=== PATIENT | female | born 1955 | race Caucasian/White ===

== ENCOUNTER 2022-12-10 11:41 | Observation (INO) | payer MEDICARE, OTHER ==
[2022-12-10 12:41] LABS: Hematocrit 43.4 % (35-47); Hemoglobin 14.5 g/dL (12.0-16.0); Mean Cell Volume 82.8 fL (78-100); Mean Corpuscular Hemoglobin 27.7 pg (26-32); Mean Corpuscular Hgb Concent. 33.4 g/dL (32-36); Mean Platelet Volume 10.3 fL (7.5-11.0); Platelet Count 202 x10^3/uL (150-450); Red Blood Count 5.24 x10^6/uL (4.1-5.4); White Blood Count 12.2 x10^3/uL (4.0-10.5)
[2022-12-10 13:00] LABS: ALBUMIN 4.3 g/dL (3.5-5.0); ALKALINE PHOSPHATASE 92 U/L (38-126); AMYLASE 56 U/L (30-110); BLOOD UREA NITROGEN 13 mg/dL (7-17); CHLORIDE 106 mmol/L (98-107); Calcium 8.9 mg/dL (8.4-10.2); Carbon Dioxide 23 mmol/L (22-30); Creatinine 1 0.75 mg/dL (0.52-1.04); EST GLOMERULAR FILTRATION RATE > 60.0 ML/MIN; Glucose 151 mg/dL (74-106); LIPASE 73 U/L (23-300); Potassium 3.2 mmol/L (3.5-5.1); SGOT/AST 19 U/L (14-36); SGPT/ALT 14 U/L (0-35); SODIUM 139 mmol/L (137-145); Total Protein 7.9 g/dL (6.3-8.2)
[2022-12-10] MEDS: Sodium Chloride 0.9% 1000 ML 1,000 ML IV SCH ×2 (13:04→22:21)
[2022-12-10 13:31] LABS: INFLUENZA A NEGATIVE (NEGATIVE); INFLUENZA B NEGATIVE (NEGATIVE); RESPIRATORY SYNCTIAL VIRUS NEGATIVE (Negative); SARS-CoV-2 Xpert Express NEGATIVE (NEGATIVE)
[2022-12-10] MEDS: Hydromorphone 1 mg/ml Injection IV PRN (14:41)
[2022-12-10] MEDS: FLAGYL 500 MG IVPB 500 MG/100 ML BAG IV SCH ×2 (15:49→22:18)
[2022-12-10] MEDS ORDERED: MEDICATION INTERVENTION MC SCH (16:00)
--- NOTE | 2022-12-10 17:18 | XRAY ---
Indication: Abdominal pain, vomiting, diarrhea. Diverticulitis. Multiple contiguous axial images obtained through the abdomen and pelvis prior to and following 80 cc Isovue 370 contrast. Comparison: August 16, 2012 Lung bases demonstrates new minimal bibasilar subsegmental atelectasis/scarring. Stable 3 mm right middle lobe noncalcified nodule favored to be benign given stability over the years. Heart not enlarged. Again moderate sized hiatal hernia with partial intrathoracic stomach. Noncontrasted images demonstrates 3 new tiny left renal indeterminant cortical calcifications. Again incidental tiny splenic calcified granulomas. Noncontrasted stomach and bowel loops nonobstructed. Appendix not visualized. Descending colon demonstrates new moderate circumferential wall thickening with mild pericolonic stranding favoring colitis. Lesser degree colitis seen of the proximal sigmoid colon. No free fluid/air. Interval cholecystectomy. Postcontrast images demonstrate normal visceral and renal enhancement/excretion. Again incidental left renal parapelvic cysts with new right renal parapelvic cysts. Urinary bladder demonstrates new intraluminal air bubble either iatrogenic from recent catheterization versus gas-forming bacterial infection. Remaining liver, pancreas, spleen, adrenal glands, kidneys, ureters, and bladder are unremarkable. New minimal aortoiliac calcifications. No AAA or pathologic retroperitoneal lymphadenopathy. Osseous structures intact again with L5-S1 posterior fusion, mild multilevel degenerative spondylosis, and minimal grade 1 L5 anterolisthesis. Impression: 1. New CT findings favoring descending/sigmoid colitis. No complications. 2. New indeterminate left renal cortical calcifications. Incidental bilateral renal parapelvic cysts. 3. New urinary bladder intraluminal air bubble either iatrogenic versus gas-forming bacterial infection. 4. Again chronic findings including benign right middle lobe noncalcified micronodule, hiatal hernia with partial intrathoracic stomach, and chronic bony findings.
[2022-12-10] MEDS: Klor Con PO SCH ×4 (18:11→23:46)
[2022-12-10] MEDS ORDERED: LIPITOR 40MG PO SCH (22:00)
[2022-12-10] MEDS: Toprol Xl 50 MG PO SCH (22:00)
[2022-12-10] MEDS: ZOCOR 20MG PO SCH (22:01)
[2022-12-11] MEDS: Hydromorphone 1 mg/ml Injection IV PRN ×2 (01:47→08:07)
[2022-12-11] MEDS: FLAGYL 500 MG IVPB 500 MG/100 ML BAG IV SCH ×3 (05:12→23:25)
[2022-12-11 06:16] LABS: ANION GAP 10.1 MEQ/L (5-15); BLOOD UREA NITROGEN 11 mg/dL (7-17); CHLORIDE 112 mmol/L (98-107); Calcium 8.2 mg/dL (8.4-10.2); Carbon Dioxide 20 mmol/L (22-30); Creatinine 1 0.64 mg/dL (0.52-1.04); EST GLOMERULAR FILTRATION RATE > 60.0 ML/MIN; Glucose 86 mg/dL (74-106); Potassium 3.8 mmol/L (3.5-5.1); SODIUM 139 mmol/L (137-145)
[2022-12-11] MEDS ORDERED: Zofran 4 MG/2 ML VIAL IV PRN (09:16)
[2022-12-11 09:25] LABS: Absolute Neutrophil Ct (ANC) 6.88 x10^3/uL (1.4-6.9); BASOPHIL % 0.4 % (0.0-0.4); Basophil (Absolute #) 0.04 x10^3/uL (0-0.4); Eosinophil % 0.6 % (0.00-5.0); Eosinophil (Absolute #) 0.06 x10^3/uL (0-0.5); Hematocrit 39.3 % (35-47); Hemoglobin 12.6 g/dL (12.0-16.0); IMMATURE GRAN # 0.03 x10^3u/L (0.00-0.03); IMMATURE GRAN % 0.3 % (0.00-0.4); Lymphocyte (Absolute #) 1.64 x10^3/uL (1.0-4.6); Lymphocytes % 17.7 % (24.0-44.0); Mean Cell Volume 86.2 fL (78-100); Mean Corpuscular Hemoglobin 27.6 pg (26-32); Mean Corpuscular Hgb Concent. 32.1 g/dL (32-36); Mean Platelet Volume 10.8 fL (7.5-11.0); Monocyte (Absolute #) 0.59 x10^3/uL (0.0-1.3); Monocytes % 6.4 % (0.0-12.0); Neutrophil % 74.6 % (36.0-66.0); Platelet Count 170 x10^3/uL (150-450); Red Blood Count 4.56 x10^6/uL (4.1-5.4); White Blood Count 9.2 x10^3/uL (4.0-10.5)
[2022-12-11] MEDS: Sodium Chloride 0.9% 1000 ML 1,000 ML IV SCH ×2 (09:40→19:52)
[2022-12-11] MEDS ORDERED: NON-FORMULARY ITEM (Dapagliflozin Propanediol [Farxiga] 10 MG Tablet) PO SCH (10:00)
[2022-12-11] MEDS: NEURONTIN PO SCH (10:28)
[2022-12-11] MEDS: CLARITIN 10 MG PO SCH (10:28)
[2022-12-11] MEDS: Protonix 20MG Tablet PO SCH (10:28)
[2022-12-11] MEDS: Zestril 20 MG PO SCH (10:28)
[2022-12-11] MEDS: PLAVIX Tablet PO SCH (10:31)
--- NOTE | 2022-12-11 14:27 | PCM.HP.ADD ---
Addendum to History & Physical - History & Physical Addendum Addendum to History & Physical: This certifies that the History & Physical in the electronic chart reflects the current health status of the patient. If there are changes in the H&P these changes/exceptions are listed as follows.
--- NOTE | 2022-12-11 14:32 | PCM.NOTE ---
Date and Time: 12/11/221426 Subjective Assessment: c/o left lower abdominal pain, nausea - Review of Systems Constitutional: No Fever, No Chills Eyes: No Symptoms Ears, Nose, & Throat: No Symptoms Respiratory: No Cough, No Short Of Breath Cardiac: No Chest Pain, No Edema, No Syncope Abdominal/Gastrointestinal: Abdominal Pain, Nausea, No Vomiting, No Diarrhea Genitourinary Symptoms: No Dysuria Musculoskeletal: No Back Pain, No Neck Pain Skin: No Rash Neurological: No Dizziness, No Focal Weakness, No Sensory Changes Psychological: No Symptoms Endocrine: No Symptoms Hematologic/Lymphatic: No Symptoms Immunological/Allergic: No Symptoms Objective Exam General Appearance: no apparent distress, alert Neurologic Exam: alert, oriented x 3, cooperative, normal mood/affect, nml cerebellar function, sensation nml, No motor deficits Skin Exam: normal color, warm, dry Eye Exam: PERRL, EOMI, eyes nml inspection Ears, Nose, Throat Exam: normal ENT inspection, pharynx normal, moist mucous membranes Neck Exam: normal inspection, non-tender, supple, full range of motion Respiratory Exam: normal breath sounds, lungs clear, No respiratory distress Cardiovascular Exam: regular rate/rhythm, normal heart sounds Gastrointestinal/Abdomen Exam: soft, tenderness (LLQ), No mass Extremity Exam: normal inspection, normal range of motion Back Exam: normal inspection, normal range of motion, No CVA tenderness, No vertebral tenderness Pelvic Exam: deferred Rectal Exam: deferred OBJECTIVE DATA Vital Signs: Vital Signs - 24 hr Temp Pulse Resp BP Pulse Ox 12/11/22 12:00 18 12/11/22 11:37 97.8 F 67 18 174/65 96 12/11/22 08:00 97.7 F 71 18 174/77 95 12/11/22 04:00 97.7 F 67 16 156/74 97 12/11/22 00:00 98.9 F 70 21 167/81 96 12/10/22 23:28 16 12/10/22 20:00 97.8 F 70 16 154/70 96 12/10/22 16:18 97.8 F 66 18 142/67 94 L Pain Assessment - Last Documented Pain Intensity 3 Pain Scale Used 0-10 Pain Scale Intake and Output: Intake & Output 12/09/22 12/10/22 12/11/22 12/12/22 11:59 11:59 11:59 11:59 Intake Total 3481 360 Output Total 1150 Balance 2331 360 Weight 89.2 kg Lab Results: Lab Results-Last 24 Hours 12/10/22 12/10/22 12/10/22 Range/Units 19:14 19:39 22:22 WBC (4.0-10.5) x10^3/uL RBC (4.1-5.4) x10^6/uL Hgb (12.0-16.0) g/dL Hct (35-47) % MCV (78-100) fL MCH (26-32) pg MCHC (32-36) g/dL RDW (11.5-14.0) % Plt Count (150-450) x10^3/uL MPV (7.5-11.0) fL Gran % (36.0-66.0) % Immature Gran % (Auto) (0.00-0.4) % Nucleat RBC Rel Count (0.00-0.1) % Eos # (Auto) (0-0.5) x10^3/uL Immature Gran # (Auto) (0.00-0.03) x10^3u/L Absolute Lymphs (auto) (1.0-4.6) x10^3/uL Absolute Monos (auto) (0.0-1.3) x10^3/uL Absolute Nucleated RBC (0.00-0.01) x10^3u/L Lymphocytes % (24.0-44.0) % Monocytes % (0.0-12.0) % Eosinophils % (0.00-5.0) % Basophils % (0.0-0.4) % Absolute Granulocytes (1.4-6.9) x10^3/uL Basophils # (0-0.4) x10^3/uL Sodium (137-145) mmol/L Potassium 3.0 L* (3.5-5.1) mmol/L Chloride (98-107) mmol/L Carbon Dioxide (22-30) mmol/L Anion Gap (5-15) MEQ/L BUN (7-17) mg/dL Creatinine (0.52-1.04) mg/dL Estimated GFR ML/MIN Glucose (74-106) mg/dL POC Glucometer 100 (74 to 106) mg/dL Calcium (8.4-10.2) mg/dL Magnesium 2.0 (1.6-2.3) mg/dL 12/10/22 12/11/22 12/11/22 Range/Units 23:50 05:39 05:40 WBC 9.2 (4.0-10.5) x10^3/uL RBC 4.56 (4.1-5.4) x10^6/uL Hgb 12.6 (12.0-16.0) g/dL Hct 39.3 (35-47) % MCV 86.2 (78-100) fL MCH 27.6 (26-32) pg MCHC 32.1 (32-36) g/dL RDW 14.0 (11.5-14.0) % Plt Count 170 (150-450) x10^3/uL MPV 10.8 (7.5-11.0) fL Gran % 74.6 H (36.0-66.0) % Immature Gran % (Auto) 0.3 (0.00-0.4) % Nucleat RBC Rel Count 0.0 (0.00-0.1) % Eos # (Auto) 0.06 (0-0.5) x10^3/uL Immature Gran # (Auto) 0.03 (0.00-0.03) x10^3u/L Absolute Lymphs (auto) 1.64 (1.0-4.6) x10^3/uL Absolute Monos (auto) 0.59 (0.0-1.3) x10^3/uL Absolute Nucleated RBC 0.00 (0.00-0.01) x10^3u/L Lymphocytes % 17.7 L (24.0-44.0) % Monocytes % 6.4 (0.0-12.0) % Eosinophils % 0.6 (0.00-5.0) % Basophils % 0.4 (0.0-0.4) % Absolute Granulocytes 6.88 (1.4-6.9) x10^3/uL Basophils # 0.04 (0-0.4) x10^3/uL Sodium 139 (137-145) mmol/L Potassium 3.3 L 3.8 (3.5-5.1) mmol/L Chloride 112 H (98-107) mmol/L Carbon Dioxide 20 L (22-30) mmol/L Anion Gap 10.1 (5-15) MEQ/L BUN 11 (7-17) mg/dL Creatinine 0.64 (0.52-1.04) mg/dL Estimated GFR > 60.0 ML/MIN Glucose 86 (74-106) mg/dL POC Glucometer (74 to 106) mg/dL Calcium 8.2 L (8.4-10.2) mg/dL Magnesium 2.0 (1.6-2.3) mg/dL 12/11/22 12/11/22 Range/Units 07:18 10:46 WBC (4.0-10.5) x10^3/uL RBC (4.1-5.4) x10^6/uL Hgb (12.0-16.0) g/dL Hct (35-47) % MCV (78-100) fL MCH (26-32) pg MCHC (32-36) g/dL RDW (11.5-14.0) % Plt Count (150-450) x10^3/uL MPV (7.5-11.0) fL Gran % (36.0-66.0) % Immature Gran % (Auto) (0.00-0.4) % Nucleat RBC Rel Count (0.00-0.1) % Eos # (Auto) (0-0.5) x10^3/uL Immature Gran # (Auto) (0.00-0.03) x10^3u/L Absolute Lymphs (auto) (1.0-4.6) x10^3/uL Absolute Monos (auto) (0.0-1.3) x10^3/uL Absolute Nucleated RBC (0.00-0.01) x10^3u/L Lymphocytes % (24.0-44.0) % Monocytes % (0.0-12.0) % Eosinophils % (0.00-5.0) % Basophils % (0.0-0.4) % Absolute Granulocytes (1.4-6.9) x10^3/uL Basophils # (0-0.4) x10^3/uL Sodium (137-145) mmol/L Potassium (3.5-5.1) mmol/L Chloride (98-107) mmol/L Carbon Dioxide (22-30) mmol/L Anion Gap (5-15) MEQ/L BUN (7-17) mg/dL Creatinine (0.52-1.04) mg/dL Estimated GFR ML/MIN Glucose (74-106) mg/dL POC Glucometer 82 93 (74 to 106) mg/dL Calcium (8.4-10.2) mg/dL Magnesium (1.6-2.3) mg/dL Radiology Exams: Radiology Procedures Category Date Time Status ABDOMEN AND PELVIS W&WO CONTRA [CT] Urgent Exams 12/10/22 12:[address]/ABDOMEN AND PELVIS W&WO CONTRA Indication: Abdominal pain, vomiting, diarrhea. Diverticulitis. Multiple contiguous axial images obtained through the abdomen and pelvis prior to and following 80 cc Isovue 370 contrast. Comparison: August 16, 2012 Lung bases demonstrates new minimal bibasilar subsegmental atelectasis/scarring. Stable 3 mm right middle lobe noncalcified nodule favored to be benign given stability over the years. Heart not enlarged. Again moderate sized hiatal hernia with partial intrathoracic stomach. Noncontrasted images demonstrates 3 new tiny left renal indeterminant cortical calcifications. Again incidental tiny splenic calcified granulomas. Noncontrasted stomach and bowel loops nonobstructed. Appendix not visualized. Descending colon demonstrates new moderate circumferential wall thickening with mild pericolonic stranding favoring colitis. Lesser degree colitis seen of the proximal sigmoid colon. No free fluid/air. Interval cholecystectomy. Postcontrast images demonstrate normal visceral and renal enhancement/excretion. Again incidental left renal parapelvic cysts with new right renal parapelvic cysts. Urinary bladder demonstrates new intraluminal air bubble either iatrogenic from recent catheterization versus gas-forming bacterial infection. Remaining liver, pancreas, spleen, adrenal glands, kidneys, ureters, and bladder are unremarkable. New minimal aortoiliac calcifications. No AAA or pathologic retroperitoneal lymphadenopathy. Osseous structures intact again with L5-S1 posterior fusion, mild multilevel degenerative spondylosis, and minimal grade 1 L5 anterolisthesis. Impression: 1. New CT findings favoring descending/sigmoid colitis. No complications. 2. New indeterminate left renal cortical calcifications. Incidental bilateral renal parapelvic cysts. 3. New urinary bladder intraluminal air bubble either iatrogenic versus gas-forming bacterial infection. 4. Again chronic findings including benign right middle lobe noncalcified micronodule, hiatal hernia with partial intrathoracic stomach, and chronic bony findings. Assessment/Plan (1) Diverticulitis of colon without hemorrhage Current Visit: Yes Status: Acute Assessment & Plan: Chief Complaint Diagnosis Abdominal Pain Allergies Allergy/AdvReac Type Severity Reaction Status Date / Time Sulfa (Sulfonamide Allergy Severe Tightness Verified 12/10/22 13:12 Antibiotics) of Throat codeine AdvReac Intermediate Nausea and Verified 12/10/22 13:12 Vomiting Vital Signs (Last 24 hours) Temp Pulse Resp BP Pulse Ox 12/11/22 12:00 18 12/11/22 11:37 97.8 F 67 18 174/65 96 12/11/22 08:00 97.7 F 71 18 174/77 95 12/11/22 04:00 97.7 F 67 16 156/74 97 12/11/22 00:00 98.9 F 70 21 167/81 96 12/10/22 23:28 16 12/10/22 20:00 97.8 F 70 16 154/70 96 12/10/22 16:18 97.8 F 66 18 142/67 94 L Home Medications Medication Instructions Recorded Confirmed Last Taken Type Atorvastatin Calcium [Lipitor 40Mg] 40 mg PO HS 12/10/22 12/10/22 12/09/22 History Clopidogrel Bisulfate [Clopidogrel] 75 mg PO DAILY 12/10/22 12/10/22 Unknown History Dapagliflozin Propanediol [Farxiga] 10 mg PO DAILY 12/10/22 12/10/22 12/10/22 History 10 mg Gabapentin [Neurontin ] 300 mg PO DAILY 12/10/22 12/10/22 Unknown History Lisinopril 20 mg [Zestril 20 20 mg PO DAILY 12/10/22 12/10/22 12/10/22 Hi story MG] Loratadine 10 mg [Claritin 10 10 mg PO DAILY 12/10/22 12/10/22 12/10/22 History mg] 10 Metoprolol Succinate 50 mg 50 mg PO HS 12/10/22 12/10/22 12/09/22 History [Toprol Xl 50 MG] Pantoprazole 20 mg [Protonix 20 mg PO DAILY 12/10/22 12/10/22 Unknown History 20MG Tablet] Semaglutide [Ozempic] 0 mg SQ TU 12/10/22 12/10/22 12/08/22 History Current Medications Generic Name Dose Route Start Last Admin Trade Name Freq PRN Reason Stop Dose Admin Clopidogrel Bisulfate 75 mg 12/11/22 10:00 12/11/22 10:31 Clopidogrel Bisulfate 75 Mg Tablet PO 01/10/23 09:59 Not Given DAILY WILFRED Gabapentin 300 mg 12/11/22 10:00 12/11/22 10:28 Gabapentin 300 Mg Capsule PO 01/10/23 09:59 Not Given DAILY WILFRED Hydromorphone HCl 0.5 mg 12/10/22 12:34 12/11/22 08:07 Hydromorphone 1 Mg/1ml Inj 1 Mg/Ml Syringe IV 12/15/22 12:33 0.5 mg Q4H PRN PRN Administration Sodium Chloride 1,000 mls @ 100 mls/hr 12/10/22 12:45 12/11/22 09:40 Sodium Chloride 0.9% 1000 Ml IV 01/09/23 12:44 100 mls/hr .Q10H WILFRED Administration Metronidazole 500 mg in 100 mls @ 100 mls/hr 12/10/22 14:00 12/11/22 13:21 Flagyl 500 Mg Ivpb IV 01/09/23 13:59 100 mls/hr Q8HT WILFRED Administration Lisinopril 20 mg 12/11/22 10:00 12/11/22 10:28 Lisinopril 20 Mg Tablet PO 01/10/23 09:59 20 mg DAILY WILFRED Administration Loratadine 10 mg 12/11/22 10:00 12/11/22 10:28 Loratadine 10 Mg Tablet PO 01/10/23 09:59 10 mg DAILY WILFRED Administration Metoprolol Succinate 50 mg 12/10/22 22:00 12/10/22 22:00 Metoprolol Succinate 50 Mg Tablet.Sa PO 01/09/23 21:59 50 mg HS WILFRED Administration Miscellaneous Information 1 each 12/10/22 16:00 Medication Intervention 1 Each Each 01/09/23 15:59 .RN TO CHECK WILFRED Ondansetron HCl 4 mg 12/11/22 09:16 12/11/22 09:43 Ondansetron Hcl 4 Mg/2 Ml Vial IV 01/10/23 09:15 4 mg Q4H PRN PRN Administration NAUSEA/VOMITING Pantoprazole Sodium 20 mg 12/11/22 10:00 12/11/22 10:28 Pantoprazole 20 Mg Tab PO 01/10/23 09:59 20 mg DAILY WILFRED Administration Simvastatin 40 mg 12/10/22 22:00 12/10/22 22:01 Simvastatin 20 Mg Tablet PO 01/09/23 21:59 40 mg HS WILFRED Administration Discontinued Medications Generic Name Dose Route Start Last Admin Trade Name Freq PRN Reason Stop Dose Admin Potassium Chloride 20 meq 12/10/22 17:45 12/10/22 23:46 Potassium Chloride Tab 10 Meq Tab PO 12/10/22 23:46 20 meq Q2H WILFRED Administration Intake & Output (Last 24 hours) 12/09/22 12/10/22 12/11/22 12/12/22 11:59 11:59 11:59 11:59 Intake Total 3481 360 Output Total 1150 Balance 2331 360 Weight 89.2 kg Laboratory Results (Last 24 hours) 12/11/22 12/11/22 12/11/22 10:46 07:18 05:40 WBC RBC Hgb Hct MCV MCH MCHC RDW Plt Count MPV Gran % Immature Gran % (Auto) Nucleat RBC Rel Count Eos # (Auto) Immature Gran # (Auto) Absolute Lymphs (auto) Absolute Monos (auto) Absolute Nucleated RBC Lymphocytes % Monocytes % Eosinophils % Basophils % Absolute Granulocytes Basophils # Sodium 139 Potassium 3.8 Chloride 112 H Carbon Dioxide 20 L Anion Gap 10.1 BUN 11 Creatinine 0.64 Estimated GFR > 60.0 Glucose 86 POC Glucometer 93 82 Calcium 8.2 L Magnesium 2.0 12/11/22 12/10/22 12/10/22 05:39 23:50 22:22 WBC 9.2 RBC 4.56 Hgb 12.6 Hct 39.3 MCV 86.2 MCH 27.6 MCHC 32.1 RDW 14.0 Plt Count 170 MPV 10.8 Gran % 74.6 H Immature Gran % (Auto) 0.3 Nucleat RBC Rel Count 0.0 Eos # (Auto) 0.06 Immature Gran # (Auto) 0.03 Absolute Lymphs (auto) 1.64 Absolute Monos (auto) 0.59 Absolute Nucleated RBC 0.00 Lymphocytes % 17.7 L Monocytes % 6.4 Eosinophils % 0.6 Basophils % 0.4 Absolute Granulocytes 6.88 Basophils # 0.04 Sodium Potassium 3.3 L Chloride Carbon Dioxide Anion Gap BUN Creatinine Estimated GFR Glucose POC Glucometer 100 Calcium Magnesium 12/10/22 12/10/22 19:39 19:14 WBC RBC Hgb Hct MCV MCH MCHC RDW Plt Count MPV Gran % Immature Gran % (Auto) Nucleat RBC Rel Count Eos # (Auto) Immature Gran # (Auto) Absolute Lymphs (auto) Absolute Monos (auto) Absolute Nucleated RBC Lymphocytes % Monocytes % Eosinophils % Basophils % Absolute Granulocytes Basophils # Sodium Potassium 3.0 L* Chloride Carbon Dioxide Anion Gap BUN Creatinine Estimated GFR Glucose POC Glucometer Calcium Magnesium 2.0 Orders (Last 24 hours) Category Date Time Status Consult Surgery ROUTINE Cons 12/11/22 09:22 Active Clear Liquid Diet 12/11/22 Lunch Active Full Liquid Diet Diet 12/11/22 Breakfast Completed BMP AM.LAB Lab 12/11/22 05:40 Completed CBC W DIFF Urgent Lab 12/11/22 05:39 Completed MAGNESIUM AM.LAB Lab 12/11/22 05:40 Completed MAGNESIUM Routine Lab 12/10/22 19:14 Completed MAGNESIUM Stat Lab 12/10/22 19:39 Completed POCT GLUCOSE Stat Lab 12/10/22 22:22 Completed POCT GLUCOSE Stat Lab 12/11/22 07:18 Completed POCT GLUCOSE Stat Lab 12/11/22 10:46 Completed Potassium Q4H Lab 12/10/22 19:14 Completed Potassium Q4H Lab 12/10/22 23:50 Completed Clopidogrel Bisulfate [PLAVIX Tablet] Med 12/11/22 10:00 Active 75 mg PO DAILY Gabapentin [Neurontin ] Med 12/11/22 10:00 Active 300 mg PO DAILY Lisinopril 20 mg [Zestril 20 MG] Med 12/11/22 10:00 Active 20 mg PO DAILY Loratadine 10 mg [Claritin 10 mg] Med 12/11/22 10:00 Active 10 mg PO DAILY Medication Intervention Med 12/10/22 16:00 Active 1 each MC .RN TO CHECK Metoprolol Succinate 50 mg [Toprol Xl 50 MG] Med 12/10/22 22:00 Active 50 mg PO HS Metronidazole 500 mg Premix [Flagyl 500 mg Ivpb] Med 12/10/22 14:00 Active 500 mg in 100 ml IV Q8HT Ondansetron HCl 4 mg/2 ml [Zofran 4 MG/2 ML VIAL] Med 12/11/22 09:16 Act danuta 4 mg IV Q4H PRN PRN Pantoprazole 20 mg [Protonix 20MG Tablet] Med 12/11/22 10:00 Active 20 mg PO DAILY Potassium Chloride Tab* [Klor Con] Med 12/10/22 17:45 Discontinued 20 meq PO Q2H Simvastatin 20Mg [Zocor 20Mg] Med 12/10/22 22:00 Active 40 mg PO HS Patient Care Notes (Last 24 hours) 12/11/22 10:27 (created 12/11/22 10:29) Nursing Note by Jessica Campbell CALLED CONSULT TO [facility]AIL/LEYLA/SUSANNE OFFICE. ([facility]) Addendum entered by Jessica Campbell 12/11/22 10:30: DR. STIVEN HAYES IS DIRECTOR STAFFING. Initialized on 12/11/22 10:29 - END OF NOTE Code(s): K57.32 - DVTRCLI OF LG INT W/O PERFORATION OR ABSCESS W/O BLEEDING
[2022-12-11] MEDS: Toprol Xl 50 MG PO SCH (23:24)
[2022-12-11] MEDS: ZOCOR 20MG PO SCH (23:24)
[2022-12-12] MEDS: Sodium Chloride 0.9% 1000 ML 1,000 ML IV SCH ×2 (06:07→14:40)
[2022-12-12] MEDS: FLAGYL 500 MG IVPB 500 MG/100 ML BAG IV SCH ×3 (06:34→22:23)
[2022-12-12] MEDS: Protonix 20MG Tablet PO SCH (09:21)
[2022-12-12] MEDS: Zestril 20 MG PO SCH (09:21)
[2022-12-12] MEDS: CLARITIN 10 MG PO SCH (09:22)
[2022-12-12] MEDS: NEURONTIN PO SCH (09:24)
[2022-12-12 09:34] LABS: Hematocrit 37.2 % (35-47); Mean Cell Volume 87.1 fL (78-100); Mean Corpuscular Hemoglobin 28.1 pg (26-32); Mean Corpuscular Hgb Concent. 32.3 g/dL (32-36); Mean Platelet Volume 10.5 fL (7.5-11.0); Platelet Count 162 x10^3/uL (150-450); Red Blood Count 4.27 x10^6/uL (4.1-5.4); Red Cell Distribution Width 13.6 % (11.5-14.0); White Blood Count 7.5 x10^3/uL (4.0-10.5)
[2022-12-12 09:47] LABS: ANION GAP 10.5 MEQ/L (5-15); BLOOD UREA NITROGEN 9 mg/dL (7-17); CHLORIDE 114 mmol/L (98-107); Calcium 7.9 mg/dL (8.4-10.2); Carbon Dioxide 21 mmol/L (22-30); Creatinine 1 0.65 mg/dL (0.52-1.04); EST GLOMERULAR FILTRATION RATE > 60.0 ML/MIN; Glucose 86 mg/dL (74-106); Potassium 3.8 mmol/L (3.5-5.1); SODIUM 142 mmol/L (137-145)
[2022-12-12] MEDS: PLAVIX Tablet PO SCH (11:20)
--- NOTE | 2022-12-12 17:39 | PCM.NOTE ---
Date and Time: 12/12/221735 Subjective Assessment: Her pain is better, 3/10, generalized soreness. Has just had CLD today, but had full liquids last night. Some nausea last night but thinks that is resolved today. Had some bloody diarrhea (maroon blood). Last colonoscopy < 2 yrs ago, she thinks. - Review of Systems Constitutional: No Fever Abdominal/Gastrointestinal: Abdominal Pain, No Vomiting Objective Exam General Appearance: no apparent distress, alert Neurologic Exam: oriented x 3, cooperative Skin Exam: warm, dry, No rash Eye Exam: eyes nml inspection Ears, Nose, Throat Exam: moist mucous membranes Neck Exam: normal inspection Respiratory Exam: normal breath sounds, lungs clear, No crackles/rales, No rhonchi, No wheezing Cardiovascular Exam: regular rate/rhythm, normal heart sounds, No murmur Gastrointestinal/Abdomen Exam: soft, tenderness (LUQ), No normal bowel sounds (hypoactive but present.), No distention, No mass, No guarding, No rebound OBJECTIVE DATA Vital Signs: Vital Signs - 24 hr Temp Pulse Resp BP Pulse Ox 12/12/22 16:00 97.5 F 80 17 146/76 96 12/12/22 12:00 97.7 F 67 17 172/81 95 12/12/22 11:50 19 12/12/22 08:00 97.5 F 69 19 170/76 95 12/12/22 07:48 16 12/12/22 04:00 99 F 70 16 165/79 91 L 12/12/22 00:00 18 12/11/22 20:00 98.0 F 75 17 185/75 96 Pain Assessment - Last Documented Pain Intensity 0 Pain Scale Used 0-10 Pain Scale Intake and Output: Intake & Output 12/10/22 12/11/22 12/12/22 12/13/22 11:59 11:59 11:59 11:59 Intake Total 3481 3107 1833 Output Total 1150 200 Balance 2331 2907 1833 Weight 89.2 kg Lab Results: Lab Results-Last 24 Hours 12/11/22 12/12/22 12/12/22 Range/Units 21:14 03:41 09:23 WBC 7.5 (4.0-10.5) x10^3/uL RBC 4.27 (4.1-5.4) x10^6/uL Hgb 12.0 (12.0-16.0) g/dL Hct 37.2 (35-47) % MCV 87.1 (78-100) fL MCH 28.1 (26-32) pg MCHC 32.3 (32-36) g/dL RDW 13.6 (11.5-14.0) % Plt Count 162 (150-450) x10^3/uL MPV 10.5 (7.5-11.0) fL Sodium (137-145) mmol/L Potassium (3.5-5.1) mmol/L Chloride (98-107) mmol/L Carbon Dioxide (22-30) mmol/L Anion Gap (5-15) MEQ/L BUN (7-17) mg/dL Creatinine (0.52-1.04) mg/dL Estimated GFR ML/MIN Glucose (74-106) mg/dL POC Glucometer 75 78 (74 to 106) mg/dL Calcium (8.4-10.2) mg/dL 12/12/22 12/12/22 Range/Units 09:23 16:33 WBC (4.0-10.5) x10^3/uL RBC (4.1-5.4) x10^6/uL Hgb (12.0-16.0) g/dL Hct (35-47) % MCV (78-100) fL MCH (26-32) pg MCHC (32-36) g/dL RDW (11.5-14.0) % Plt Count (150-450) x10^3/uL MPV (7.5-11.0) fL Sodium 142 (137-145) mmol/L Potassium 3.8 (3.5-5.1) mmol/L Chloride 114 H (98-107) mmol/L Carbon Dioxide 21 L (22-30) mmol/L Anion Gap 10.5 (5-15) MEQ/L BUN 9 (7-17) mg/dL Creatinine 0.65 (0.52-1.04) mg/dL Estimated GFR > 60.0 ML/MIN Glucose 86 (74-106) mg/dL POC Glucometer 137 H (74 to 106) mg/dL Calcium 7.9 L (8.4-10.2) mg/dL Assessment/Plan (1) Diverticulitis Current Visit: Yes Status: Acute Assessment & Plan: On flagyl day #3; has improved, but would like to see her eating more without pain prior to discharge. LIkely home tomorrow. Will need to f/u with surgery outpatient to do a colonoscopy. Code(s): K57.92 - DVTRCLI OF INTEST, PART UNSP, W/O PERF OR ABSCESS W/O BLEED
[2022-12-12] MEDS ORDERED: NEURONTIN PO SCH (22:00)
[2022-12-12] MEDS: Toprol Xl 50 MG PO SCH (22:23)
[2022-12-12] MEDS: ZOCOR 20MG PO SCH (22:23)
[2022-12-13] MEDS: FLAGYL 500 MG IVPB 500 MG/100 ML BAG IV SCH (07:04)
[2022-12-13] MEDS: Sodium Chloride 0.9% 1000 ML 1,000 ML IV SCH (07:04)
[2022-12-13 07:50] LABS: Absolute Neutrophil Ct (ANC) 4.84 x10^3/uL (1.4-6.9); BASOPHIL % 0.4 % (0.0-0.4); Basophil (Absolute #) 0.03 x10^3/uL (0-0.4); Eosinophil % 0.7 % (0.00-5.0); Eosinophil (Absolute #) 0.05 x10^3/uL (0-0.5); Hematocrit 34.8 % (35-47); Hemoglobin 11.5 g/dL (12.0-16.0); IMMATURE GRAN # 0.02 x10^3u/L (0.00-0.03); IMMATURE GRAN % 0.3 % (0.00-0.4); Lymphocyte (Absolute #) 1.31 x10^3/uL (1.0-4.6); Lymphocytes % 19.4 % (24.0-44.0); Mean Cell Volume 83.9 fL (78-100); Mean Corpuscular Hemoglobin 27.7 pg (26-32); Mean Platelet Volume 10.3 fL (7.5-11.0); Monocyte (Absolute #) 0.52 x10^3/uL (0.0-1.3); Monocytes % 7.7 % (0.0-12.0); Neutrophil % 71.5 % (36.0-66.0); Platelet Count 178 x10^3/uL (150-450); Red Blood Count 4.15 x10^6/uL (4.1-5.4); Red Cell Distribution Width 13.6 % (11.5-14.0); White Blood Count 6.8 x10^3/uL (4.0-10.5)
[2022-12-13 08:00] LABS: BLOOD UREA NITROGEN 7 mg/dL (7-17); CHLORIDE 113 mmol/L (98-107); Calcium 7.9 mg/dL (8.4-10.2); Carbon Dioxide 21 mmol/L (22-30); Creatinine 1 0.58 mg/dL (0.52-1.04); EST GLOMERULAR FILTRATION RATE > 60.0 ML/MIN; Glucose 100 mg/dL (74-106); Potassium 3.4 mmol/L (3.5-5.1)
[2022-12-13 08:02] LABS: SODIUM 140 mmol/L (137-145)
[2022-12-13 08:03] VITALS: BP 173/77; PULSE 66; O2SAT 95
[2022-12-13 08:30] LABS: ANION GAP 9.4 MEQ/L (5-15)
[2022-12-13] MEDS: Protonix 20MG Tablet PO SCH (09:22)
[2022-12-13] MEDS: PLAVIX Tablet PO SCH (09:22)
[2022-12-13] MEDS: CLARITIN 10 MG PO SCH (09:22)
[2022-12-13] MEDS: Zestril 20 MG PO SCH (09:22)
[2022-12-13] MEDS ORDERED: Flagyl 500 MG PO SCH (10:00)
--- NOTE | 2022-12-13 10:17 | PCM.DS ---
Discharge Summary Date of Admission: 12/10/22 12:13 Admitting Physician: YOGESH WHITEHEAD Consults: Consults on Case 12/11/22 09:22 Consult Surgery ROUTINE Primary Care Provider: YOGESH WHITEHEAD Allergies Allergies Sulfa (Sulfonamide Antibiotics) Allergy (Severe, Verified 12/10/22 13:12) Tightness of Throat codeine Adverse Reaction (Intermediate, Verified 12/10/22 13:12) Nausea and Vomiting Hospital Summary - Hospital Course Hospital Course: Pt is a 67 yo female admitted for severe diverticulitis from office. She was placed on IV flagyl and has done very well. Surgery was consulted and wants to f/u with outpatient colonoscopy. Pt is tolerating po well (bland diet) and is now not having any pain or nausea. Has had some diarrhea with some maroon blood present. We discussed that she needs to keep an eye on that, and if any increased bleeding needs to come to ER because bleeding from GI tract can escalate quickly. Will be discharged to home on flagyl (6 more days, to finish 10d total). She had elevated BP here - on toprol 50 at hs and lisinopril 20mg - will add HCTZ to her lisinopril. She will need to get a BP cuff for home use. - Vitals & Intake/Output Vital Signs: Vital Signs Temperature 98.7 F 12/13/22 08:00 Pulse Rate 66 12/13/22 08:00 Respiratory Rate 17 12/13/22 08:00 Blood Pressure 173/77 12/13/22 08:00 O2 Sat by Pulse Oximetry 95 12/13/22 08:00 Intake & Output: Intake & Output 12/10/22 12/11/22 12/12/22 12/13/22 11:59 11:59 11:59 11:59 Intake Total 3481 3107 3273 Output Total 1150 200 600 Balance 2331 2907 2673 Weight 89.2 kg - Lab Result Diagrams: 12/13/22 07:34 12/13/22 07:34 Lab Results-Last 24 Hrs: Lab Results-Last 24 Hours 12/12/22 12/12/22 12/13/22 Range/Units 16:33 21:07 07:34 WBC 6.8 (4.0-10.5) x10^3/uL RBC 4.15 (4.1-5.4) x10^6/uL Hgb 11.5 L (12.0-16.0) g/dL Hct 34.8 L (35-47) % MCV 83.9 (78-100) fL MCH 27.7 (26-32) pg MCHC 33.0 (32-36) g/dL RDW 13.6 (11.5-14.0) % Plt Count 178 (150-450) x10^3/uL MPV 10.3 (7.5-11.0) fL Gran % 71.5 H (36.0-66.0) % Immature Gran % (Auto) 0.3 (0.00-0.4) % Nucleat RBC Rel Count 0.0 (0.00-0.1) % Eos # (Auto) 0.05 (0-0.5) x10^3/uL Immature Gran # (Auto) 0.02 (0.00-0.03) x10^3u/L Absolute Lymphs (auto) 1.31 (1.0-4.6) x10^3/uL Absolute Monos (auto) 0.52 (0.0-1.3) x10^3/uL Absolute Nucleated RBC 0.00 (0.00-0.01) x10^3u/L Lymphocytes % 19.4 L (24.0-44.0) % Monocytes % 7.7 (0.0-12.0) % Eosinophils % 0.7 (0.00-5.0) % Basophils % 0.4 (0.0-0.4) % Absolute Granulocytes 4.84 (1.4-6.9) x10^3/uL Basophils # 0.03 (0-0.4) x10^3/uL Sodium (137-145) mmol/L Potassium (3.5-5.1) mmol/L Chloride (98-107) mmol/L Carbon Dioxide (22-30) mmol/L Anion Gap (5-15) MEQ/L BUN (7-17) mg/dL Creatinine (0.52-1.04) mg/dL Estimated GFR ML/MIN Glucose (74-106) mg/dL POC Glucometer 137 H 74 (74 to 106) mg/dL Calcium (8.4-10.2) mg/dL 12/13/22 12/13/22 Range/Units 07:34 07:43 WBC (4.0-10.5) x10^3/uL RBC (4.1-5.4) x10^6/uL Hgb (12.0-16.0) g/dL Hct (35-47) % MCV (78-100) fL MCH (26-32) pg MCHC (32-36) g/dL RDW (11.5-14.0) % Plt Count (150-450) x10^3/uL MPV (7.5-11.0) fL Gran % (36.0-66.0) % Immature Gran % (Auto) (0.00-0.4) % Nucleat RBC Rel Count (0.00-0.1) % Eos # (Auto) (0-0.5) x10^3/uL Immature Gran # (Auto) (0.00-0.03) x10^3u/L Absolute Lymphs (auto) (1.0-4.6) x10^3/uL Absolute Monos (auto) (0.0-1.3) x10^3/uL Absolute Nucleated RBC (0.00-0.01) x10^3u/L Lymphocytes % (24.0-44.0) % Monocytes % (0.0-12.0) % Eosinophils % (0.00-5.0) % Basophils % (0.0-0.4) % Absolute Granulocytes (1.4-6.9) x10^3/uL Basophils # (0-0.4) x10^3/uL Sodium 140 (137-145) mmol/L Potassium 3.4 L (3.5-5.1) mmol/L Chloride 113 H (98-107) mmol/L Carbon Dioxide 21 L (22-30) mmol/L Anion Gap 9.4 (5-15) MEQ/L BUN 7 (7-17) mg/dL Creatinine 0.58 (0.52-1.04) mg/dL Estimated GFR > 60.0 ML/MIN Glucose 100 (74-106) mg/dL POC Glucometer 97 (74 to 106) mg/dL Calcium 7.9 L (8.4-10.2) mg/dL Micro Results-Entire Visit: Accuchecks Date 12/12/22 Time 21:00 Discharge Exam General Appearance: no apparent distress, alert Neurologic Exam: oriented x 3, cooperative Eye Exam: eyes nml inspection Ears, Nose, Throat Exam: moist mucous membranes Neck Exam: normal inspection Respiratory Exam: normal breath sounds, lungs clear, No crackles/rales, No rhonchi, No wheezing Cardiovascular Exam: regular rate/rhythm, normal heart sounds, No murmur Gastrointestinal/Abdomen Exam: soft, normal bowel sounds, tenderness (LLQ, mild), No distention, No mass, No guarding, No rebound Back Exam: normal inspection, No rash Extremity Exam: normal inspection, No pedal edema, No swelling Skin Exam: normal color, warm, dry, No rash Final Diagnosis/Problem List - Final Discharge Diagnosis/Problem (1) Diverticulitis Current Visit: Yes Status: Acute Assessment & Plan: Doing much better. Finish 10d of flagyl, and take probiotic. Return to hospital for GI bleeding. F/u with PCP and with gen surgery for colonoscopy. Code(s): K57.92 - DVTRCLI OF INTEST, PART UNSP, W/O PERF OR ABSCESS W/O BLEED (2) Hypokalemia Current Visit: Yes Status: Acute Assessment & Plan: mild - added 10 mEq K daily. Code(s): E87.6 - HYPOKALEMIA (3) HTN (hypertension) Current Visit: Yes Status: Chronic Assessment & Plan: increased bp meds by adding HCTZ. Code(s): I10 - ESSENTIAL (PRIMARY) HYPERTENSION - Discharge Disposition: Home, Self-Care Condition: Good Prescriptions: New Lactobacillus Acidophilus [Acidophilus TABLET] 1 tab PO TID #30 tablet Metronidazole 500 mg [Flagyl 500 MG] 500 mg PO TID 6 Days #18 tablet Lisinopril/Hydrochlorothiazide [Lisinopril-Hctz 20-12.5 mg Tab] 1 each PO DAILY 30 Days #30 tablet Ondansetron ODT 4 MG [Zofran Odt 4 mg] 4 mg PO Q6H PRN PRN #10 tablet PRN Reason: Nausea Potassium Chloride 10 meq PO DAILY #15 tablet Continue Dapagliflozin Propanediol [Farxiga] 10 mg PO DAILY Loratadine 10 mg [Claritin 10 mg] 10 mg PO DAILY Clopidogrel Bisulfate [Clopidogrel] 75 mg PO DAILY Pantoprazole 20 mg [Protonix 20MG Tablet] 20 mg PO DAILY Gabapentin [Neurontin ] 300 mg PO HS Metoprolol Succinate 50 mg [Toprol Xl 50 MG] 50 mg PO HS Atorvastatin Calcium [Lipitor 40Mg] 40 mg PO HS Semaglutide [Ozempic] 0 mg SQ TU Discontinued Lisinopril 20 mg [Zestril 20 MG] 20 mg PO DAILY Instructions: Colitis, [place] Diet Additional Instructions: YOU WILL NEED TO FOLLOW UP WITH DR. STIVEN HAYES OUTPATIENT HE IS PLANNING A COLONOSCOPY 6 WEEKS AFTER DISCHARGE. If you have BP with top number 180 or more, or bottom number 110 or more, please go to the ER or call your doctor for instructions. If you have chest pain or shortness of breath, go to ER. Follow up with: STIVEN HAYES [ACTIVE STAFF] - Call for Appointment YOGESH WHITEHEAD MD [Primary Care Provider] - Call for Appointment
--- NOTE | 2022-12-13 10:20 | PCM.DCORD ---
- Discharge Disposition: Home, Self-Care Condition: Good Prescriptions: New Lactobacillus Acidophilus [Acidophilus TABLET] 1 tab PO TID #30 tablet Metronidazole 500 mg [Flagyl 500 MG] 500 mg PO TID 6 Days #18 tablet Lisinopril/Hydrochlorothiazide [Lisinopril-Hctz 20-12.5 mg Tab] 1 each PO DAILY 30 Days #30 tablet Ondansetron ODT 4 MG [Zofran Odt 4 mg] 4 mg PO Q6H PRN PRN #10 tablet PRN Reason: Nausea Potassium Chloride 10 meq PO DAILY #15 tablet Continue Dapagliflozin Propanediol [Farxiga] 10 mg PO DAILY Loratadine 10 mg [Claritin 10 mg] 10 mg PO DAILY Clopidogrel Bisulfate [Clopidogrel] 75 mg PO DAILY Pantoprazole 20 mg [Protonix 20MG Tablet] 20 mg PO DAILY Gabapentin [Neurontin ] 300 mg PO HS Metoprolol Succinate 50 mg [Toprol Xl 50 MG] 50 mg PO HS Atorvastatin Calcium [Lipitor 40Mg] 40 mg PO HS Semaglutide [Ozempic] 0 mg SQ TU Discontinued Lisinopril 20 mg [Zestril 20 MG] 20 mg PO DAILY Instructions: Colitis, [place] Diet Additional Instructions: YOU WILL NEED TO FOLLOW UP WITH DR. STIVEN HAYES OUTPATIENT HE IS PLANNING A COLONOSCOPY 6 WEEKS AFTER DISCHARGE. If you have BP with top number 180 or more, or bottom number 110 or more, please go to the ER or call your doctor for instructions. If you have chest pain or shortness of breath, go to ER. Follow up with: STIVEN HAYES [ACTIVE STAFF] - Call for Appointment YOGESH WHITEHEAD MD [Primary Care Provider] - Call for Appointment
--- NOTE | 2022-12-14 10:40 | CONS ---
CONSULT DATE: 12/11/2022 REASON FOR CONSULT: Abdominal pain possible colitis. HISTORY: A 67-year-old white female known to our group. She had laparoscopic cholecystectomy about years ago at [facility] and she did well. She has not been in the hospital since then and she has not really been in the hospital quite a while before that. Issues started Wednesday morning. She had toast. She placed mayonnaise on her toast. She fried some stern. She had a stern, toast, mayonnaise sandwich. Both her and her son had similar sandwich and had no issue. She developed lower abdominal pain and cramps, subsequently vomiting, subsequently diarrhea. She is going from both ends. She was a little better Wednesday but a hair worse on . She came to the hospital and was admitted. She has been getting IV fluids, IV antibiotics, GI rest and pain medicine. She is better but she is automatic lathe tender in left lower quadrant. She appeared to be a little distraught with her left leg flexed. Her CT scan showed inflammation in the sigmoid colon. She had colonoscopy some three to four years ago so she is just about up for that. With this episode she is up for this and will be scheduled about six weeks after she leaves. We can do this as an outpatient. PAST MEDICAL HISTORY: She has had diabetes for 20 years. She has had hypertension for 20 years. She had some vertebrobasilar symptoms with dizziness. She had a blood clot about two years ago which she was on anticoagulation at that time for, apparently had it to her lungs. ALLERGIES: SULFA. CODEINE. MEDICATIONS: She is on blood pressure medicine, diabetic medicine, Plavix. PHYSICAL EXAMINATION: She is very pleasant, very good historian. ABDOMEN: She is very mildly tender, very mildly distended. She had a laparoscopic cholecystectomy waldron in the upper abdomen. IMPRESSION: Sigmoid diverticulitis limited. PLAN: Continue medical therapy. At this time she is getting better. I think continuing the care of IV fluids, IV medications, advance the diet as tolerated. She may need a repeat CT scan before she goes home. She will need a colonoscopy in about six weeks by someone in our group.
== END 2022-12-13 10:48 | disposition home or self-care (01) ==
LOC: MED SURG 12:13
PROVIDERS: ADMIT General Practice; ATTEND General Practice
DX: K57.92 Diverticulitis of intestine, part unspecified, without perforation or abscess without bleeding (principal); E87.6 Hypokalemia; I10 Essential (primary) hypertension; K92.1 Melena; E11.9 Type 2 diabetes mellitus without complications; Z79.01 Long term (current) use of anticoagulants; Z79.899 Other long term (current) drug therapy; Z20.828 Contact with and (suspected) exposure to other viral communicable diseases
CPT/HCPCS: 0241U; 36415; 74178; 80048; 80053; 82150; 82947; 83690; 83735; 84132; 85025; 85027; G0378; J1170; J2405; A9270-GY

== ENCOUNTER 2022-12-14 08:02 | Emergency (ER) | payer MEDICARE, OTHER ==
[2022-12-14 09:02] LABS: Absolute Neutrophil Ct (ANC) 4.26 x10^3/uL (1.4-6.9); BASOPHIL % 0.5 % (0.0-0.4); Basophil (Absolute #) 0.03 x10^3/uL (0-0.4); Eosinophil (Absolute #) 0.06 x10^3/uL (0-0.5); Hematocrit 36.9 % (35-47); Hemoglobin 12.2 g/dL (12.0-16.0); IMMATURE GRAN # 0.02 x10^3u/L (0.00-0.03); IMMATURE GRAN % 0.3 % (0.00-0.4); Lymphocyte (Absolute #) 1.33 x10^3/uL (1.0-4.6); Lymphocytes % 21.5 % (24.0-44.0); Mean Cell Volume 83.9 fL (78-100); Mean Corpuscular Hemoglobin 27.7 pg (26-32); Mean Corpuscular Hgb Concent. 33.1 g/dL (32-36); Monocyte (Absolute #) 0.49 x10^3/uL (0.0-1.3); Monocytes % 7.9 % (0.0-12.0); Neutrophil % 68.8 % (36.0-66.0); Platelet Count 198 x10^3/uL (150-450); Red Cell Distribution Width 13.4 % (11.5-14.0); White Blood Count 6.2 x10^3/uL (4.0-10.5)
--- NOTE | 2022-12-14 09:06 | XRAY ---
Indication: Headache. Hypertension. Blood thinner therapy. Multiple contiguous axial images obtained through the head without contrast. Comparison: None Age-appropriate global atrophy and minimal periventricular degenerative micro-ischemia bilaterally. No acute intracranial hemorrhage, abnormal extra-axial fluid collection, or mass effect. Fourth ventricle is midline without hydrocephalus. Martinez-white matter differentiation preserved. Bony calvarium intact. Visualized paranasal sinuses and mastoid air cells are clear. Impression: Nonacute senile brain.
[2022-12-14 09:16] LABS: ALBUMIN 3.6 g/dL (3.5-5.0); ALKALINE PHOSPHATASE 64 U/L (38-126); ANION GAP 9.2 MEQ/L (5-15); BLOOD UREA NITROGEN 8 mg/dL (7-17); CHLORIDE 110 mmol/L (98-107); Calcium 8.2 mg/dL (8.4-10.2); Carbon Dioxide 21 mmol/L (22-30); Creatinine 1 0.59 mg/dL (0.52-1.04); EST GLOMERULAR FILTRATION RATE > 60.0 ML/MIN; Glucose 139 mg/dL (74-106); Potassium 3.1 mmol/L (3.5-5.1); SGOT/AST 16 U/L (14-36); SGPT/ALT 12 U/L (0-35); SODIUM 138 mmol/L (137-145); Total Protein 6.6 g/dL (6.3-8.2)
[2022-12-14] MEDS ORDERED: Klor Con PO ONE ×2 (11:04→11:12)
--- NOTE | 2022-12-14 11:04 | ERPHSYRPT ---
- History of Present Illness Time Seen by Provider: 12/14/22 08:30 Source: patient Exam Limitations: no limitations Patient Subjective Stated Complaint: pt here for headache and high blood pressure, her dc instructions said to be seen if b/p was over 180. she was dx fro diverticuli yesterday Triage Nursing Assessment: pt alert, waked in , resp easy, face mask in place, abd soft, has not had am meds Physician History: Patient is a 67-year-old female recently discharged from our hospital for treatment of diverticulitis. Discharge instructions advised patient to come to the ED if blood pressure is over 180 systolic. Patient checked her blood pressure today and states it was 180s. Patient presented to our ED as in structed. Patient states she also has a headache. No active chest pain. No nausea vomiting or diaphoresis. Symptoms are mild to moderate in intensity. No specific worsening improving factors. Patient voices no other complaints or concerns at this time. Portions of this note were created with voice recognition technology. There may be grammatical, spelling, punctuation or sound alike errors Timing/Duration: today Severity: moderate Modifying Factors: Improves With: nothing Associated Symptoms: other (Headache) Allergies/Adverse Reactions: Sulfa (Sulfonamide Antibiotics) Allergy (Severe, Verified 12/14/22 08:14) Tightness of Throat codeine Adverse Reaction (Intermediate, Verified 12/14/22 08:14) Nausea and Vomiting Home Medications: Atorvastatin Calcium [Lipitor 40Mg] 40 mg PO HS 12/10/22 [History] Clopidogrel Bisulfate [Clopidogrel] 75 mg PO DAILY 12/10/22 [History] Dapagliflozin Propanediol [Farxiga] 10 mg PO DAILY 12/10/22 [History] Gabapentin [Neurontin ] 300 mg PO HS 12/10/22 [History] Loratadine 10 mg [Claritin 10 mg] 10 mg PO DAILY 12/10/22 [History] Metoprolol Succinate 50 mg [Toprol Xl 50 MG] 50 mg PO HS 12/10/22 [History] Pantoprazole 20 mg [Protonix 20MG Tablet] 20 mg PO DAILY 12/10/22 [History] Semaglutide [Ozempic] 0 mg SQ TU 12/10/22 [History] Hx Influenza Vaccination/Date Given: No Hx Pneumococcal Vaccination/Date Given: No Immunizations Up to Date: Yes Travel Risk - International Travel Have you traveled outside of the country in past 3 weeks: No - Coronavirus Screening Are you exhibiting any of the following symptoms?: No - Vaccine Status Have you recieved a Covid-19 vaccination: Yes 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 - Vaccination Dates Date of 2cond Vaccination (if applicable): March 2021 - Review of Systems Constitutional: No Symptoms, No Fever, No Chills Eyes: No Symptoms Ears, Nose, & Throat: No Symptoms Respiratory: No Symptoms, No Cough, No Dyspnea Cardiac: No Symptoms, No Chest Pain, No Edema, No Syncope Abdominal/Gastrointestinal: No Symptoms, Appetite Changes, No Abdominal Pain, No Nausea, No Vomiting, No Diarrhea Genitourinary Symptoms: No Dysuria Musculoskeletal: No Symptoms, No Back Pain, No Neck Pain Skin: No Symptoms, No Rash Neurological: No Symptoms, No Dizziness, No Focal Weakness, No Sensory Changes Psychological: No Symptoms Endocrine: No Symptoms Hematologic/Lymphatic: No Symptoms Immunological/Allergic: No Symptoms All Other Systems: Reviewed and Negative - Past Medical History Pertinent Past Medical History: Yes Neurological History: No Pertinent History ENT History: No Pertinent History Cardiac History: Hypertension Respiratory History: No Pertinent History Endocrine Medical History: Diabetes Type II Musculoskeletal History: Arthritis GI Medical History: Gallbladder Disease, Other History: Other Psycho-Social History: No Pertinent History Female Reproductive Disorders: No Pertinent History Other Medical History: Hx PE's four years ago; - Past Surgical History Past Surgical History: Yes (Left Total knee, GB, Hysterect) Neuro Surgical History: No Pertinent History Cardiac: No Pertinent History Respiratory: No Pertinent History Gastrointestinal: Cholecystectomy Genitourinary: No Pertinent History Musculoskeletal: Joint Replacement, Orthopedic Surgery Female Surgical History: Hysterectomy - Social History Smoking Status: Former smoker Exposure to second hand smoke: No Drug Use: none Patient Lives Alone: No - Nursing Vital Signs Nursing Vital Signs: Initial Vital Signs Temperature 97.6 F 12/14/22 08:20 Pulse Rate 63 12/14/22 08:20 Respiratory Rate 18 12/14/22 08:20 Blood Pressure 183/97 12/14/22 08:20 Pain Scale Pain Intensity 0 - Physical Exam General Appearance: no apparent distress, alert Eye Exam: PERRL/EOMI, eyes nml inspection Ears, Nose, Throat Exam: normal ENT inspection, TMs normal, pharynx normal, moist mucous membranes Neck Exam: normal inspection, non-tender, supple, full range of motion Respiratory Exam: normal breath sounds, lungs clear, airway intact, No respiratory distress Cardiovascular Exam: regular rate/rhythm, normal heart sounds, normal peripheral pulses Gastrointestinal/Abdomen Exam: soft, normal bowel sounds, No tenderness, No mass Back Exam: normal inspection, normal range of motion, No CVA tenderness, No vertebral tenderness Extremity Exam: normal inspection, normal range of motion, pelvis stable Neurologic Exam: alert, oriented x 3, cooperative, normal mood/affect, nml cerebellar function, nml station & gait, sensation nml, No motor deficits Skin Exam: normal color, warm, dry, No rash Lymphatic Exam: No adenopathy SpO2 Interpretation: normal O2 Delivery: Room Air - Course Nursing assessment & vital signs reviewed: Yes EKG Interpreted by Me: RATE (63), Sinus Rhythm, Left Webster Deviation, NORMAL INTERVALS - CT Exams Head CT Interpretation: Tele-radiologist Report (Nonacute senile brain) Ordered Tests: Active Orders 24 hr Category Date Time Status [facility] STAT Care 12/14/22 08:33 Active EKG-ER Only STAT Care 12/14/22 08:32 Active IV Insertion STAT Care 12/14/22 08:32 Active HEAD WITHOUT CONTRAST [CT] Stat Exams 12/14/22 08:34 Completed CBC W DIFF Stat Lab 12/14/22 08:50 Completed CMP Stat Lab 12/14/22 08:50 Completed TROPONIN Q4H Lab 12/14/22 08:50 Completed TROPONIN Q4H Lab 12/14/22 16:45 Ordered Medication Summary Generic Name Dose Route Start Last Admin Trade Name Freq PRN Reason Stop Dose Admin Magnesium Sulfate/Dextrose 100 mls @ 100 mls/hr 12/14/22 11:15 12/14/22 12:19 Magnesium 1 Gm / 100 Ml D5w IV 12/14/22 13:14 100 mls/hr Q1H WILFRED Administration Discontinued Medications Generic Name Dose Route Start Last Admin Trade Name Freq PRN Reason Stop Dose Admin Lisinopril 20 mg/ 0 mg 12/14/22 11:15 12/14/22 11:18 Hydrochlorothiazide 12.5 mg PO 12/14/22 11:16 25 mg STAT ONE Administration Diphenhydramine HCl 25 mg 12/14/22 11:05 12/14/22 11:17 Diphenhydramine Hcl 50 Mg/Ml Vial IV 12/14/22 11:06 25 mg STAT ONE Administration Diphenhydramine HCl Confirm 12/14/22 11:12 Diphenhydramine Hcl 50 Mg/Ml Vial Administered 12/14/22 11:13 Dose 50 mg .ROUTE .STK-MED ONE Ketorolac Tromethamine 30 mg 12/14/22 11:05 12/14/22 11:17 Ketorolac Tromethamine 30 Mg/Ml Inj IV 12/14/22 11:06 30 mg STAT ONE Administration Ketorolac Tromethamine Confirm 12/14/22 11:12 Ketorolac Tromethamine 30 Mg/Ml Inj Administered 12/14/22 11:13 Dose 30 mg .ROUTE .STK-MED ONE Potassium Chloride 40 meq 12/14/22 11:04 12/14/22 11:18 Potassium Chloride Tab 10 Meq Tab PO 12/14/22 11:05 40 meq STAT ONE Administration Potassium Chloride Confirm 12/14/22 11:12 Potassium Chloride Tab 10 Meq Tab Administered 12/14/22 11:13 Dose 40 meq PO .STK-MED ONE Prochlorperazine Edisylate 10 mg 12/14/22 11:05 12/14/22 11:18 Prochlorperazine Edisylate 10 Mg/2 Ml Vial IV 12/14/22 11:06 10 mg STAT ONE Administration Prochlorperazine Edisylate Confirm 12/14/22 11:12 Prochlorperazine Edisylate 10 Mg/2 Ml Vial Administered 12/14/22 11:13 Dose 10 mg .ROUTE .STK-MED ONE Lab/Rad Data: Laboratory Result Diagrams 12/14/22 08:50 12/14/22 08:50 Laboratory Results 12/14/22 12/14/22 12/14/22 Range/Units 11:45 08:50 08:50 WBC (4.0-10.5) x10^3/uL RBC (4.1-5.4) x10^6/uL Hgb (12.0-16.0) g/dL Hct (35-47) % MCV (78-100) fL MCH (26-32) pg MCHC (32-36) g/dL RDW (11.5-14.0) % Plt Count (150-450) x10^3/uL MPV (7.5-11.0) fL Gran % (36.0-66.0) % Immature Gran % (Auto) (0.00-0.4) % Nucleat RBC Rel Count (0.00-0.1) % Eos # (Auto) (0-0.5) x10^3/uL Immature Gran # (Auto) (0.00-0.03) x10^3u/L Absolute Lymphs (auto) (1.0-4.6) x10^3/uL Absolute Monos (auto) (0.0-1.3) x10^3/uL Absolute Nucleated RBC (0.00-0.01) x10^3u/L Lymphocytes % (24.0-44.0) % Monocytes % (0.0-12.0) % Eosinophils % (0.00-5.0) % Basophils % (0.0-0.4) % Absolute Granulocytes (1.4-6.9) x10^3/uL Basophils # (0-0.4) x10^3/uL Sodium 138 (137-145) mmol/L Potassium 3.1 L (3.5-5.1) mmol/L Chloride 110 H (98-107) mmol/L Carbon Dioxide 21 L (22-30) mmol/L Anion Gap 9.2 (5-15) MEQ/L BUN 8 (7-17) mg/dL Creatinine 0.59 (0.52-1.04) mg/dL Estimated GFR > 60.0 ML/MIN Glucose 139 H (74-106) mg/dL Calcium 8.2 L (8.4-10.2) mg/dL Total Bilirubin 0.50 (0.2-1.3) mg/dL AST 16 (14-36) U/L ALT 12 (0-35) U/L Alkaline Phosphatase 64 (38-126) U/L Troponin 0.01 (0.00-0.03) ng/mL Troponin I < 0.012 (0.000-0.034) ng/mL Serum Total Protein 6.6 (6.3-8.2) g/dL Albumin 3.6 (3.5-5.0) g/dL 12/14/22 Range/Units 08:50 WBC 6.2 (4.0-10.5) x10^3/uL RBC 4.40 (4.1-5.4) x10^6/uL Hgb 12.2 (12.0-16.0) g/dL Hct 36.9 (35-47) % MCV 83.9 (78-100) fL MCH 27.7 (26-32) pg MCHC 33.1 (32-36) g/dL RDW 13.4 (11.5-14.0) % Plt Count 198 (150-450) x10^3/uL MPV 10.0 (7.5-11.0) fL Gran % 68.8 H (36.0-66.0) % Immature Gran % (Auto) 0.3 (0.00-0.4) % Nucleat RBC Rel Count 0.0 (0.00-0.1) % Eos # (Auto) 0.06 (0-0.5) x10^3/uL Immature Gran # (Auto) 0.02 (0.00-0.03) x10^3u/L Absolute Lymphs (auto) 1.33 (1.0-4.6) x10^3/uL Absolute Monos (auto) 0.49 (0.0-1.3) x10^3/uL Absolute Nucleated RBC 0.00 (0.00-0.01) x10^3u/L Lymphocytes % 21.5 L (24.0-44.0) % Monocytes % 7.9 (0.0-12.0) % Eosinophils % 1.0 (0.00-5.0) % Basophils % 0.5 (0.0-0.4) % Absolute Granulocytes 4.26 (1.4-6.9) x10^3/uL Basophils # 0.03 (0-0.4) x10^3/uL Sodium (137-145) mmol/L Potassium (3.5-5.1) mmol/L Chloride (98-107) mmol/L Carbon Dioxide (22-30) mmol/L Anion Gap (5-15) MEQ/L BUN (7-17) mg/dL Creatinine (0.52-1.04) mg/dL Estimated GFR ML/MIN Glucose (74-106) mg/dL Calcium (8.4-10.2) mg/dL Total Bilirubin (0.2-1.3) mg/dL AST (14-36) U/L ALT (0-35) U/L Alkaline Phosphatase (38-126) U/L Troponin (0.00-0.03) ng/mL Troponin I (0.000-0.034) ng/mL Serum Total Protein (6.3-8.2) g/dL Albumin (3.5-5.0) g/dL - Progress Progress: improved Progress Note: Case discussed with who agrees with disposition. He agrees to discharge patient home. Patient is a 67-year-old female presents to our ED for evaluation of elevated blood pressure and headache. Patient was recently discharged from our hospital for diverticulitis. Patient was advised to return to our ED if her blood pressure was found to be elevated. Patient blood pressure at home was 183 systolic. Patient presented as instructed. Patient's complaint was acute. Complexity is moderate. Comorbidity include diverticulitis which may be contributing to patient elevated blood pressure. Laboratory tests ordered include CT head CBC CMP troponin. CT head negative for acute intracranial pathology. CBC CMP troponin were all negative. Patient blood pressure was elevated. Patient received her home lisinopril in our ED. Laboratory studies revealed a hypokalemia. Patient received oral potassium and magnesium. For patient's headache she received Benadryl Compazine and Toradol. Patient reassessed. She feels much better. Time spent during discharge approximately 10 minutes. Discharge diagnosis is migraine headache. Hypertension. Hypokalemia. Portions of this note were created with voice recognition technology. There may be grammatical, spelling, punctuation or sound alike errors 12/14/22 14:33 Discussed with : Madelaine Counseled pt/family regarding: lab results, diagnosis, need for follow-up, rad results - Departure Departure Disposition: Home Clinical Impression: Hypokalemia, HTN (hypertension), Headache Condition: Stable Critical Care Time: No Referrals: YOGESH WHITEHEAD MD [Primary Care Provider] - Follow up/PCP as directed
[2022-12-14] MEDS ORDERED: Compazine 10 MG/2 ML IV ONE (11:05)
[2022-12-14] MEDS ORDERED: BENADRYL 50 MG/ML IV ONE (11:05)
[2022-12-14] MEDS ORDERED: TORAdol 30 mg Injection IV ONE (11:05)
[2022-12-14] MEDS ORDERED: TORAdol 30 mg Injection ONE (11:12)
[2022-12-14] MEDS ORDERED: BENADRYL 50 MG/ML ONE (11:12)
[2022-12-14] MEDS ORDERED: Compazine 10 MG/2 ML ONE (11:12)
[2022-12-14] MEDS ORDERED: Zestril 20 MG*** 20 MG, hydroDIURIL 25 MG*** 12.5 MG PO ONE ×2 (11:15)
[2022-12-14] MEDS ORDERED: Magnesium 1 Gm / 100 Ml D5W*** 100 ML IV ONE ×2 (11:19→11:20)
[2022-12-14] MEDS: Magnesium 1 Gm / 100 Ml D5W*** 100 ML IV SCH ×2 (11:19→12:19)
[2022-12-14 12:06] VITALS: O2SAT 95
[2022-12-14 13:17] VITALS: BP 173/75; PULSE 58
== END 2022-12-14 15:11 | disposition home or self-care (01) ==
LOC: ED 08:02
DX: I10 Essential (primary) hypertension (principal); E87.6 Hypokalemia; R51.9 Headache, unspecified; E11.9 Type 2 diabetes mellitus without complications; Z79.02 Long term (current) use of antithrombotics/antiplatelets; Z79.85 Long-term (current) use of injectable non-insulin antidiabetic drugs; Z79.899 Other long term (current) drug therapy
CPT/HCPCS: 36000; 36415; 70450; 80053; 84484; 85025; 93005; 93041; 96365; 96374; 96375; 99284; J1200; J1885; J3475; A9270-GY

== ENCOUNTER 2023-04-02 04:33 | Emergency (ER) | payer MEDICARE, OTHER ==
[2023-04-02] MEDS ORDERED: ZOFRAN ODT 4 MG PO ONE ×2 (05:11→08:13)
[2023-04-02] MEDS ORDERED: TORAdol 30 mg Injection IM ONE (05:11)
[2023-04-02] MEDS ORDERED: Norflex 60 MG/2 ML IM ONE (05:11)
[2023-04-02] MEDS ORDERED: Hydromorphone 1 mg/ml Injection IM ONE ×2 (05:17→06:45)
[2023-04-02] MEDS ORDERED: Hydromorphone 1 mg/ml Injection ONE ×2 (05:21→06:48)
[2023-04-02] MEDS ORDERED: ZOFRAN ODT 4 MG ONE ×2 (05:21→08:13)
[2023-04-02] MEDS ORDERED: Norflex 60 MG/2 ML ONE (05:21)
--- NOTE | 2023-04-02 05:43 | ERPHSYRPT ---
- History of Present Illness Time Seen by Provider: 04/02/23 05:38 Source: patient, family Exam Limitations: no limitations Patient Subjective Stated Complaint: pt states she bumped into her when walking into the bathroom and fell, landing on her lt arm. Triage Nursing Assessment: pt alert and oriented, answers questions approp. pt ambulates into room with steady gait noted. homemade sling to lt arm with pt guarding lt arm. cap refill and radial pulse to lt arm wnl. abrsion to lt elbow noted. Physician History: This is a 68-year-old white female who has a history of hypertension, diabetes, hyperlipidemia, gastroesophageal reflux disease and is on Plavix for history of pulmonary emboli and presents with left humerus, left elbow and left proximal forearm pain after accidentally bumping into her and then falling onto this area onto the ground. 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 Patient denies head injury. She did not lose consciousness. She denies neck and denies back pain. She has no chest pain. She has no shortness of breath and she has no abdominal pain. In review of the patient's old chart including the inpatient chart, patient has taken Dilaudid before without any issues. Occurred: just prior to arrival Method of Injury: fell Quality: constant, aching, throbbing Severity of Pain-Max: moderate Severity of Pain-Current: moderate Extremities Pain Location: arm: left, elbow: left, forearm: left Modifying Factors: Improves With: immobilization (Improves), movement (Worsens) Associated Symptoms: none Allergies/Adverse Reactions: Sulfa (Sulfonamide Antibiotics) Allergy (Severe, Verified 12/14/22 08:14) Tightness of Throat codeine Adverse Reaction (Intermediate, Verified 12/14/22 08:14) Nausea and Vomiting Home Medications: Atorvastatin Calcium [Lipitor 40Mg] 40 mg PO HS 12/10/22 [History] Clopidogrel Bisulfate [Clopidogrel] 75 mg PO DAILY 12/10/22 [History] Dapagliflozin Propanediol [Farxiga] 10 mg PO DAILY 12/10/22 [History] Gabapentin [Neurontin ] 300 mg PO HS 12/10/22 [History] Loratadine 10 mg [Claritin 10 mg] 10 mg PO DAILY 12/10/22 [History] Metoprolol Succinate 50 mg [Toprol Xl 50 MG] 50 mg PO HS 12/10/22 [History] Pantoprazole 20 mg [Protonix 20MG Tablet] 20 mg PO DAILY 12/10/22 [History] Semaglutide [Ozempic] 0 mg SQ TU 12/10/22 [History] Hx Tetanus, Diphtheria Vaccination/Date Given: Yes Hx Influenza Vaccination/Date Given: Yes Hx Pneumococcal Vaccination/Date Given: No Travel Risk - International Travel Have you traveled outside of the country in past 3 weeks: No - Coronavirus Screening Are you exhibiting any of the following symptoms?: No Close contact with a COVID-19 positive Pt in past 14-21 Days: No - Vaccine Status Have you recieved a Covid-19 vaccination: Yes Printing Technician: Moderna - Vaccination Dates Date of 2cond Vaccination (if applicable): March 2021 - Review of Systems Constitutional: No Symptoms Eyes: No Symptoms Ears, Nose, & Throat: No Symptoms Respiratory: No Symptoms Cardiac: No Symptoms Abdominal/Gastrointestinal: No Symptoms Genitourinary Symptoms: No Symptoms Musculoskeletal: Fall, Injury (Distal left humerus/left elbow/proximal left forearm) Skin: No Symptoms Neurological: No Symptoms Psychological: No Symptoms Endocrine: No Symptoms Hematologic/Lymphatic: No Symptoms Immunological/Allergic: No Symptoms All Other Systems: Reviewed and Negative - Past Medical History Pertinent Past Medical History: Yes Neurological History: No Pertinent History ENT History: No Pertinent History Cardiac History: Hypertension Respiratory History: No Pertinent History Endocrine Medical History: Diabetes Type II Musculoskeletal History: Arthritis GI Medical History: Gallbladder Disease, Other History: Other Psycho-Social History: No Pertinent History Female Reproductive Disorders: No Pertinent History Other Medical History: Hx PE's four years ago; kidney stones - Past Surgical History Past Surgical History: Yes (Left Total knee, GB, Hysterect) Neuro Surgical History: No Pertinent History Cardiac: No Pertinent History Respiratory: No Pertinent History Gastrointestinal: Cholecystectomy Genitourinary: No Pertinent History Musculoskeletal: Joint Replacement, Orthopedic Surgery Female Surgical History: Hysterectomy Other Surgical History: back surgery, kidney stones - Social History Smoking Status: Former smoker Exposure to second hand smoke: No Drug Use: none Patient Lives Alone: No - Nursing Vital Signs Nursing Vital Signs: Initial Vital Signs Temperature 98.1 F 04/02/23 04:48 Pulse Rate 73 04/02/23 04:48 Respiratory Rate 18 04/02/23 04:48 Blood Pressure 103/72 04/02/23 04:48 O2 Sat by Pulse Oximetry 99 04/02/23 04:48 Pain Scale Pain Intensity 5 - Physical Exam General Appearance: mild distress, alert, anxiety Eyes, Ears, Nose, Throat Exam: normal ENT inspection, moist mucous membranes Neck Exam: normal inspection, non-tender, supple, full range of motion Cardiovascular/Respiratory Exam: chest non-tender, normal breath sounds, heart sounds normal, no respiratory distress, No rib tenderness Abdominal Exam: non-tender Back Exam: normal inspection, normal range of motion, No CVA tenderness Shoulder Exam: normal inspection, non-tender, no evidence of injury, limited ROM (Secondary to distal humeral pain) Elbow/Forearm Exam: bone tenderness (Distal left humerus, left elbow, proximal left forearm), limited ROM, soft tissue tenderness Wrist Exam: normal inspection (Palpable, strong radial pulse.), non-tender, no evidence of injury, normal ROM Hand Exam: normal inspection, non-tender, no evidence of injury, normal ROM Neuro/Tendon Exam: normal sensation, normal tendon functions, responds to pain, no evidence tendon injury Mental Status Exam: alert, oriented x 3, cooperative Skin Exam: normal color, warm, dry SpO2 Interpretation: normal SpO2: 99 O2 Delivery: Room Air Procedures - Splinting Time of Procedure: 06:40 Location of Splint: Left, Elbow Type of Splint: Orthoglass Long Arm Splint (Posterior) Splint Applied By: ED Nurse Pre-Proc Neuro Vasc Exam: normal Post-Proc Neuro Vasc Exam: neurovascular intact, unchanged from pre-exam Ordered Tests: Active Orders 24 hr Category Date Time Status FOREARM Stat Exams 04/02/23 05:10 Completed HUMERUS Stat Exams 04/02/23 05:10 Taken Medication Summary Discontinued Medications Generic Name Dose Route Start Last Admin Trade Name Freq PRN Reason Stop Dose Admin Hydromorphone HCl 0.5 mg 04/02/23 05:17 04/02/23 05:24 Hydromorphone 1 Mg/1ml Inj IM 04/02/23 05:18 0.5 mg STAT ONE Administration Hydromorphone HCl Confirm 04/02/23 05:21 Hydromorphone 1 Mg/1ml Inj Administered 04/02/23 05:22 Dose 1 mg .ROUTE .STK-MED ONE Ketorolac Tromethamine 60 mg 04/02/23 05:11 04/02/23 06:15 Ketorolac Tromethamine 30 Mg/Ml Inj IM 04/02/23 05:12 Not Given STAT ONE Ondansetron HCl 4 mg 04/02/23 05:11 04/02/23 05:25 Zofran 4 Mg/Udtablet Orally Disintegrating PO 04/02/23 05:12 4 mg STAT ONE Administration Ondansetron HCl Confirm 04/02/23 05:21 Zofran 4 Mg/Udtablet Orally Disintegrating Administered 04/02/23 05:22 Dose 4 mg .ROUTE .STK-MED ONE Orphenadrine Citrate 60 mg 04/02/23 05:11 04/02/23 05:24 Orphenadrine Citrate 60 Mg/2 Ml Vial IM 04/02/23 05:12 60 mg STAT ONE Administration Orphenadrine Citrate Confirm 04/02/23 05:21 Orphenadrine Citrate 60 Mg/2 Ml Vial Administered 04/02/23 05:22 Dose 60 mg .ROUTE .STK-MED ONE - Progress Progress: improved, pain not gone completely Progress Note: 04/02/23 05:45 X-ray of the left humerus shows a distal humeral fracture. This was interpreted by me. X-ray of the left forearm shows a distal humeral fracture. This was interpreted by me. We are awaiting the final read by the radiologist. We sent the films to be reviewed by nighttime radiologist. This patient's medical history is 1 of moderate complexity. The level of complexity and the work-up performed is based on review of the patient's past medical history, reviewed the patient's medication list, reviewed the patient's drug allergy list, history present illness and physical findings on examination. The initial work-up of this patient is an x-ray of the left humerus and left forearm to include the elbow. The patient is neurovascularly intact. We will place a Ortho-Glass long-arm posteriorly and place her in a formal sling. Patient will stay in the emergency room area and tell the [facility] orthopedic clinic opens up at 8 AM and we will send the patient to that clinic. We will monitor her neurovascular status as well has provided her with pain control until the orthopedic clinic opens at 8 AM. Counseled pt/family regarding: diagnosis, need for follow-up, rad results Medical Desision Making - Diagnostic Testing Diagnostic test were ordered, analyzed, and reviewed by me: Yes Radiological Interpretation: Reviewed by me, Discussed w/ radiologist, Teleradiologist Report - Risk of complications The pt has a mod risk of morbidity or mortality based on: Need for prescription drug management - Departure Departure Disposition: Home Clinical Impression: Humerus distal fracture Condition: Stable Critical Care Time: No Referrals: YOGESH WHITEHEAD MD [Primary Care Provider] - Follow up/PCP as directed Additional Instructions: Go directly to the [facility] orthopedic clinic at 8 AM from the emergency department. Do not eat or drink anything until after you are evaluated by them.
--- NOTE | 2023-04-02 05:54 | XRAY ---
CLINICAL HISTORY:fall, arm pain COMPARISON:None; TECHNIQUES:X-ray of left forearm AP and lateral projection. FINDINGS: There is a transverse fracture seen involving the distal humerus, The fracture fragments are malaligned. The distal fracture fragment is displaced posteriorly. Adjacent soft tissue swelling is also appreciated. Intact articulation of ulnohumeral and radiohumeral joint. Bone density is reduced. Mild osteoarthritic changes were noted in the elbow joint. The radius and ulna appear normal. IMPRESSION: 1-Distal humeral fracture with malalignment of fracture fragments. 2-Adjacent soft tissue swelling was noted. 3-Osteopenia seen. 4-Forearm bones are normal. DISCLAIMER: A subtle bone abnormality or fracture may not be readily apparent on x-rays, thus clinical correlation and further imaging including follow up CT, MRI, or follow up x-rays are advised as needed. [facility] ER was called at [phone] at 4:48 AM LITHOGRAPH PRESS OPERATOR, 04/02/2023 and results were verbally communicated to Dr. Trinh. Electronically Signed by: Romulo Collins MD. (04/02/2023 04:50:27 LITHOGRAPH PRESS OPERATOR)
[2023-04-02 07:25] VITALS: BP 106/74; PULSE 67; O2SAT 98
--- NOTE | 2023-04-02 09:18 | XRAY ---
Indication: Pain following fall. Comparison: None 2 view left humerus demonstrates displaced distal metadiaphyseal fracture best seen on forearm exam of same day. Elsewhere osteopenia and mild left shoulder degenerative changes. No other bony, articular, or soft tissue abnormalities.
== END 2023-04-02 08:46 | disposition home or self-care (01) ==
LOC: ED 04:33
DX: S42.492A Other displaced fracture of lower end of left humerus, initial encounter for closed fracture (principal); W03.XXXA Other fall on same level due to collision with another person, initial encounter; Y92.002 Bathroom of unspecified non-institutional (private) residence as the place of occurrence of the external cause; M79.632 Pain in left forearm; I10 Essential (primary) hypertension; E11.9 Type 2 diabetes mellitus without complications; E78.5 Hyperlipidemia, unspecified; Z79.02 Long term (current) use of antithrombotics/antiplatelets; Z79.84 Long term (current) use of oral hypoglycemic drugs; Z79.85 Long-term (current) use of injectable non-insulin antidiabetic drugs; Z79.899 Other long term (current) drug therapy
CPT/HCPCS: 29105; 73060; 73090; 96372; 99284; J1170; J2360; Q0162

== ENCOUNTER 2024-04-02 20:46 | Emergency (ER) | payer MEDICARE, OTHER ==
[2024-04-02] MEDS ORDERED: Zofran 4 MG/2 ML VIAL ONE ×2 (20:57→23:52)
[2024-04-02] MEDS ORDERED: Sodium Chloride 0.9% 1000 ML 1,000 ML ONE ×2 (20:57→22:44)
[2024-04-02] MEDS: Zofran 4 MG/2 ML VIAL IV ONE ×2 (20:58→23:53)
[2024-04-02] MEDS: Sodium Chloride 0.9% 1000 ML 1,000 ML IV STA (20:58)
[2024-04-02 21:06] LABS: Absolute Neutrophil Ct (ANC) 3.69 x10^3/uL (1.4-6.9); BASOPHIL % 0.8 % (0.0-0.4); Basophil (Absolute #) 0.07 x10^3/uL (0-0.4); Eosinophil % 2.4 % (0.00-5.0); Hemoglobin 12.8 g/dL (12.0-16.0); IMMATURE GRAN # 0.02 x10^3u/L (0.00-0.03); IMMATURE GRAN % 0.2 % (0.00-0.4); Lymphocyte (Absolute #) 3.82 x10^3/uL (1.0-4.6); Mean Cell Volume 89.4 fL (78-100); Mean Corpuscular Hemoglobin 29.4 pg (26-32); Mean Corpuscular Hgb Concent. 32.8 g/dL (32-36); Mean Platelet Volume 10.3 fL (7.5-11.0); Monocyte (Absolute #) 0.69 x10^3/uL (0.0-1.3); Monocytes % 8.1 % (0.0-12.0); Neutrophil % 43.5 % (36.0-66.0); Platelet Count 205 x10^3/uL (150-450); Red Blood Count 4.36 x10^6/uL (4.1-5.4); Red Cell Distribution Width 13.3 % (11.5-14.0); White Blood Count 8.5 x10^3/uL (4.0-10.5)
--- NOTE | 2024-04-02 21:08 | ERPHSYRPT ---
- History of Present Illness Time Seen by Provider: 04/02/24 21:03 Source: patient, family Exam Limitations: clinical condition Physician History: pt reported to have been drinking and brought by family due to being unresponsive - no hx for trauma. pt is responsive only to pain. O 2 sat RA 93%. Chest clear ht reg ABd nontender . No focal neuro findings. Timing/Duration: today Severity: severe Character of Deficits: other (altered mental status LOC) Baseline/Normal Cognition: alert oriented x 3 Current Cognition: poor alertness Baseline Gait: walks w/o assistance Associated Symptoms: denies symptoms Allergies/Adverse Reactions: Sulfa (Sulfonamide Antibiotics) Allergy (Severe, Verified 04/02/24 20:57) Tightness of Throat codeine Adverse Reaction (Intermediate, Verified 04/02/24 20:57) Nausea and Vomiting Home Medications: Atorvastatin Calcium [Lipitor 40Mg] 40 mg PO HS 12/10/22 [History] Clopidogrel Bisulfate [Clopidogrel] 75 mg PO DAILY 12/10/22 [History] Dapagliflozin Propanediol [Farxiga] 10 mg PO DAILY 12/10/22 [History] Gabapentin [Neurontin ] 300 mg PO TID 12/10/22 [History] Loratadine 10 mg [Claritin 10 mg] 10 mg PO DAILY 12/10/22 [History] Metoprolol Succinate 50 mg [Toprol Xl 50 MG] 50 mg PO HS 12/10/22 [History] Pantoprazole 20 mg [Protonix 20MG Tablet] 20 mg PO DAILY 12/10/22 [History] Semaglutide [Ozempic] 0 mg SQ TU 12/10/22 [History] Amoxicillin/Potassium Clav [Amox-Clav 500-125 mg Tablet] 1 each PO BID 04/02/24 [History] Ciprofloxacin [Cipro 500 MG] 500 mg PO UD 04/02/24 [History] Hx Tetanus, Diphtheria Vaccination/Date Given: Yes Hx Influenza Vaccination/Date Given: Yes Hx Pneumococcal Vaccination/Date Given: No - Review of Systems Constitutional: No Fever, No Chills Eyes: No Symptoms Ears, Nose, & Throat: No Symptoms Respiratory: No Cough, No Dyspnea Cardiac: No Chest Pain, No Edema, No Syncope Abdominal/Gastrointestinal: No Abdominal Pain, No Nausea, No Vomiting, No Diarrhea Genitourinary Symptoms: No Dysuria Musculoskeletal: No Back Pain, No Neck Pain Skin: No Rash Neurological: Other (AMS), No Dizziness, No Focal Weakness, No Sensory Changes Psychological: No Symptoms Endocrine: No Symptoms Hematologic/Lymphatic: No Symptoms Immunological/Allergic: No Symptoms All Other Systems: Reviewed and Negative - Past Medical History Pertinent Past Medical History: Yes Neurological History: No Pertinent History ENT History: No Pertinent History Cardiac History: Hypertension Respiratory History: No Pertinent History Endocrine Medical History: Diabetes Type II Musculoskeletal History: Arthritis GI Medical History: Gallbladder Disease, Other History: Other Psycho-Social History: No Pertinent History Female Reproductive Disorders: No Pertinent History Other Medical History: Hx PE's four years ago; kidney stones - Past Surgical History Past Surgical History: Yes (Left Total knee, GB, Hysterect) Neuro Surgical History: No Pertinent History Cardiac: No Pertinent History Respiratory: No Pertinent History Gastrointestinal: Cholecystectomy Genitourinary: No Pertinent History Musculoskeletal: Joint Replacement, Orthopedic Surgery Female Surgical History: Hysterectomy Other Surgical History: back surgery, kidney stones - Social History Smoking Status: Former smoker Exposure to second hand smoke: No Drug Use: none Patient Lives Alone: No - Nursing Vital Signs Nursing Vital Signs: Initial Vital Signs Temperature 97.0 F 04/02/24 20:46 Pulse Rate 73 04/02/24 20:46 Respiratory Rate 13 04/02/24 20:46 Blood Pressure 105/79 04/02/24 20:46 O2 Sat by Pulse Oximetry 98 04/02/24 20:46 Pain Scale Pain Intensity 0 - [place] Coma Scale Best Eye Response ([place]): (2) open to pain Best Verbal Response (Sameer): (2) incomprehsible sounds Best Motor Response (Sameer): (5) localizes to pain [place] Total: 9 - Physical Exam General Appearance: no apparent distress, alert Eye Exam: bilateral eye: PERRL, EOMI Ears, Nose, Throat Exam: normal ENT inspection, moist mucous membranes Neck Exam: normal inspection, non-tender, supple Respiratory: normal breath sounds, lungs clear, airway intact, No respiratory distress Cardiovascular: regular rate/rhythm, No edema Gastrointestinal: soft, No tenderness, No distention Pelvic Exam: deferred Rectal Exam: deferred Back Exam: normal inspection Extremity Exam: normal inspection, No pedal edema Peripheral Pulses: carotid (R): 2+, carotid (L): 2+, femoral (R): 2+, femoral (L): 2+, dorsalis-pedis (R): 2+, dorsalis-pedis (L): 2+ Mental Status: alert, 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 x 3 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 Exam: tongue midline Coordination/Gait: normal finger to nose, normal gait Motor/Sensory: no motor deficit, no sensory deficit, no pronator drift DTR: bicep (R): 2+, bicep (L): 2+, tricep (R): 2+, tricep (L): 2+, knee (R): 2+, knee (L): 2+, ankle (R): 2+, ankle (L): 2+ Skin Exam: normal color, warm, dry, No rash SpO2 Interpretation: borderline oxygenation SpO2: 93 O2 Delivery: Room Air - Course Nursing assessment & vital signs reviewed: Yes EKG Interpreted by Me: Sinus Tach, NORMAL AXIS, Q-wave, Non-specific ST Changes, Other (prolonged NH) - Radiology Exams Chest X-ray Interpretation: Interpreted by me, Reviewed by me, Other (bilateral hilar congestion) - CT Exams Head CT Interpretation: Tele-radiologist Report, Other (CVA) Ordered Tests: Active Orders 24 hr Category Date Time Status Cath for Specimen-Straight STAT Care 04/02/24 21:04 Completed EKG-ER Only STAT Care 04/02/24 21:10 Active Ang [Catheter-[place] Ang] STAT Care 04/02/24 21:19 Active IV Insertion STAT Care 04/02/24 21:10 Active IV Insertion-2nd Peripheral STAT Care 04/02/24 21:21 Completed Oxygen-ED Only Nasal Cannula 2 lpm Care 04/02/24 21:26 Active Telemetry q4h Care 04/02/24 22:43 Active CHEST 1 VIEW (PORTABLE) Stat Exams 04/02/24 20:56 Taken HEAD WITHOUT CONTRAST [CT] Stat Exams 04/02/24 21:10 Completed CBC W DIFF Stat Lab 04/02/24 21:04 Completed CMP Stat Lab 04/02/24 21:04 Completed CULTURE,URINE Stat Lab 04/02/24 21:14 Received ETHYL ALCOHOL Stat Lab 04/02/24 21:04 Completed Lactic Acid Stat Lab 04/02/24 21:10 Completed TROPONIN Q4H Lab 04/02/24 21:16 Completed TROPONIN Q4H Lab 04/03/24 01:15 Ordered TROPONIN Q4H Lab 04/03/24 05:15 Ordered UA W/RFX UR CULTURE Stat Lab 04/02/24 21:14 Completed Urine Triage Profile Stat Lab 04/02/24 21:14 Completed Medication Summary Generic Name Dose Route Start Last Admin Trade Name Emilee PRN Reason Stop Dose Admin Sodium Chloride 1,000 mls @ 100 mls/hr 04/02/24 22:45 04/02/24 22:46 Sodium Chloride 0.9% 1000 Ml IV 05/02/24 22:44 100 mls/hr .Q10H WILFRED Administration Discontinued Medications Generic Name Dose Route Start Last Admin Trade Name Freq PRN Reason Stop Dose Admin Sodium Chloride 1,000 mls @ 999 mls/hr 04/02/24 20:55 04/02/24 22:21 Sodium Chloride 0.9% 1000 Ml IV 04/02/24 21:55 Infused .Q1H1M STA Infusion Sodium Chloride Confirm 04/02/24 20:57 Sodium Chloride 0.9% 1000 Ml Administered 04/02/24 20:58 Dose 1,000 mls @ ud .ROUTE .STK-MED ONE Potassium Chloride 20 meq in 100 mls @ 50 mls/hr 04/02/24 22:43 04/02/24 22:46 Potassium Chloride 20 Meq In Water 100ml IV 04/03/24 00:42 50 mls/hr STAT ONE Administration Potassium Chloride Confirm 04/02/24 22:44 Potassium Chloride 20 Meq In Water 100ml Administered 04/02/24 22:45 Dose 100 mls @ ud IV .STK-MED ONE Ceftriaxone Sodium 1 gm in 100 mls @ 200 mls/hr 04/02/24 23:31 04/03/24 00:05 Rocephin 1 Gm / 100 Ml Nacl IV 04/03/24 00:00 Infused STAT ONE Infusion Ceftriaxone Sodium Confirm 04/02/24 23:31 Rocephin 1 Gm / 100 Ml Nacl Administered 04/02/24 23:32 Dose 1 gm in 100 mls @ ud IV .STK-MED ONE Lorazepam Confirm 04/03/24 00:10 Lorazepam 2 Mg/1 Ml 2 Mg Vial Administered 04/03/24 00:11 Dose 2 mg .ROUTE .STK-MED ONE Ondansetron HCl 4 mg 04/02/24 20:56 04/02/24 20:58 Ondansetron Hcl 4 Mg/2 Ml Vial IV 04/02/24 20:57 4 mg STAT ONE Administration Ondansetron HCl Confirm 04/02/24 20:57 Ondansetron Hcl 4 Mg/2 Ml Vial Administered 04/02/24 20:58 Dose 4 mg .ROUTE .STK-MED ONE Ondansetron HCl 4 mg 04/02/24 23:52 04/02/24 23:53 Ondansetron Hcl 4 Mg/2 Ml Vial IV 04/02/24 23:53 4 mg STAT ONE Administration Ondansetron HCl Confirm 04/02/24 23:52 Ondansetron Hcl 4 Mg/2 Ml Vial Administered 04/02/24 23:53 Dose 4 mg .ROUTE .STK-MED ONE Lab/Rad Data: Laboratory Result Diagrams 04/02/24 21:04 04/02/24 21:04 Laboratory Results 04/02/24 04/02/24 04/02/24 Range/Units 21:16 21:14 21:14 WBC (4.0-10.5) x10^3/uL RBC (4.1-5.4) x10^6/uL Hgb (12.0-16.0) g/dL Hct (35-47) % MCV (78-100) fL MCH (26-32) pg MCHC (32-36) g/dL RDW (11.5-14.0) % Plt Count (150-450) x10^3/uL MPV (7.5-11.0) fL Gran % (36.0-66.0) % Immature Gran % (Auto) (0.00-0.4) % Nucleat RBC Rel Count (0.00-0.1) % Eos # (Auto) (0-0.5) x10^3/uL Immature Gran # (Auto) (0.00-0.03) x10^3u/L Absolute Lymphs (auto) (1.0-4.6) x10^3/uL Absolute Monos (auto) (0.0-1.3) x10^3/uL Absolute Nucleated RBC (0.00-0.01) x10^3u/L Lymphocytes % (24.0-44.0) % Monocytes % (0.0-12.0) % Eosinophils % (0.00-5.0) % Basophils % (0.0-0.4) % Absolute Granulocytes (1.4-6.9) x10^3/uL Basophils # (0-0.4) x10^3/uL Sodium (135-145) mmol/L Potassium (3.5-5.1) mmol/L Chloride (98-107) mmol/L Carbon Dioxide (22-30) mmol/L Anion Gap (5-15) MEQ/L BUN (7-17) mg/dL Creatinine (0.52-1.04) mg/dL Estimated GFR ML/MIN Glucose (74-106) mg/dL Lactic Acid (0.4-2.0) Calcium (8.4-10.2) mg/dL Total Bilirubin (0.2-1.3) mg/dL AST (14-36) U/L ALT (0-35) U/L Alkaline Phosphatase (38-126) U/L Troponin I < 0.012 (0.000-0.033) ng/mL Serum Total Protein (6.3-8.2) g/dL Albumin (3.5-5.0) g/dL Urine Color Yellow (Yellow) Urine Appearance Clear (Clear) Urine pH 5.0 (4.6-8.0) Ur Specific [place] 1.025 (1.005-1.030) Urine Protein Negative (Negative) Urine Glucose (UA) >=1000 A (Negative) mg/dL Urine Ketones Negative (Negative) Urine Blood Small A (Negative) Urine Nitrite Negative (Negative) Urine Bilirubin Negative (Negative) Urine Urobilinogen 0.2 (0.2) mg/dL Ur Leukocyte Esterase Small A (Negative) U Hyaline Cast (Auto) NONE SEEN (0-2) /LPF Urine Microscopic RBC 0-2 (0-5) /HPF Urine Microscopic WBC 51-100 A (0-5) /HPF Ur Epithelial Cells Rare (None Seen) /HPF Urine Bacteria None Seen (None Seen) /HPF Urine Yeast (Budding) Moderate A (None Seen) /HPF Urine Culture Reflexed YES (NO) Urine Opiates Level NEGATIVE (NEGATIVE) Ur Methadone NEGATIVE (NEGATIVE) Urine Barbiturates NEGATIVE (NEGATIVE) Ur Phencyclidine (PCP) NEGATIVE (NEGATIVE) Urine Amphetamine NEGATIVE (NEGATIVE) U Benzodiazepine Level NEGATIVE (NEGATIVE) Urine Cocaine NEGATIVE (NEGATIVE) Urine Marijuana (THC) NEGATIVE (NEGATIVE) Ethyl Alcohol (0-10) mg/dL 04/02/24 04/02/24 04/02/24 Range/Units 21:10 21:04 21:04 WBC (4.0-10.5) x10^3/uL RBC (4.1-5.4) x10^6/uL Hgb (12.0-16.0) g/dL Hct (35-47) % MCV (78-100) fL MCH (26-32) pg MCHC (32-36) g/dL RDW (11.5-14.0) % Plt Count (150-450) x10^3/uL MPV (7.5-11.0) fL Gran % (36.0-66.0) % Immature Gran % (Auto) (0.00-0.4) % Nucleat RBC Rel Count (0.00-0.1) % Eos # (Auto) (0-0.5) x10^3/uL Immature Gran # (Auto) (0.00-0.03) x10^3u/L Absolute Lymphs (auto) (1.0-4.6) x10^3/uL Absolute Monos (auto) (0.0-1.3) x10^3/uL Absolute Nucleated RBC (0.00-0.01) x10^3u/L Lymphocytes % (24.0-44.0) % Monocytes % (0.0-12.0) % Eosinophils % (0.00-5.0) % Basophils % (0.0-0.4) % Absolute Granulocytes (1.4-6.9) x10^3/uL Basophils # (0-0.4) x10^3/uL Sodium 142 (135-145) mmol/L Potassium 3.0 L* (3.5-5.1) mmol/L Chloride 111 H (98-107) mmol/L Carbon Dioxide 14 L* (22-30) mmol/L Anion Gap 20.1 H (5-15) MEQ/L BUN 27 H (7-17) mg/dL Creatinine 1.46 H (0.52-1.04) mg/dL Estimated GFR 38.7 ML/MIN Glucose 159 H (74-106) mg/dL Lactic Acid 3.9 H (0.4-2.0) Calcium 10.0 (8.4-10.2) mg/dL Total Bilirubin 0.50 (0.2-1.3) mg/dL AST 105 H (14-36) U/L ALT 51 H (0-35) U/L Alkaline Phosphatase 79 (38-126) U/L Troponin I (0.000-0.033) ng/mL Serum Total Protein 8.3 H (6.3-8.2) g/dL Albumin 4.6 (3.5-5.0) g/dL Urine Color (Yellow) Urine Appearance (Clear) Urine pH (4.6-8.0) Ur Specific [place] (1.005-1.030) Urine Protein (Negative) Urine Glucose (UA) (Negative) mg/dL Urine Ketones (Negative) Urine Blood (Negative) Urine Nitrite (Negative) Urine Bilirubin (Negative) Urine Urobilinogen (0.2) mg/dL Ur Leukocyte Esterase (Negative) U Hyaline Cast (Auto) (0-2) /LPF Urine Microscopic RBC (0-5) /HPF Urine Microscopic WBC (0-5) /HPF Ur Epithelial Cells (None Seen) /HPF Urine Bacteria (None Seen) /HPF Urine Yeast (Budding) (None Seen) /HPF Urine Culture Reflexed (NO) Urine Opiates Level (NEGATIVE) Ur Methadone (NEGATIVE) Urine Barbiturates (NEGATIVE) Ur Phencyclidine (PCP) (NEGATIVE) Urine Amphetamine (NEGATIVE) U Benzodiazepine Level (NEGATIVE) Urine Cocaine (NEGATIVE) Urine Marijuana (THC) (NEGATIVE) Ethyl Alcohol 252 H (0-10) mg/dL 04/02/24 Range/Units 21:04 WBC 8.5 (4.0-10.5) x10^3/uL RBC 4.36 (4.1-5.4) x10^6/uL Hgb 12.8 (12.0-16.0) g/dL Hct 39.0 (35-47) % MCV 89.4 (78-100) fL MCH 29.4 (26-32) pg MCHC 32.8 (32-36) g/dL RDW 13.3 (11.5-14.0) % Plt Count 205 (150-450) x10^3/uL MPV 10.3 (7.5-11.0) fL Gran % 43.5 (36.0-66.0) % Immature Gran % (Auto) 0.2 (0.00-0.4) % Nucleat RBC Rel Count 0.0 (0.00-0.1) % Eos # (Auto) 0.20 (0-0.5) x10^3/uL Immature Gran # (Auto) 0.02 (0.00-0.03) x10^3u/L Absolute Lymphs (auto) 3.82 (1.0-4.6) x10^3/uL Absolute Monos (auto) 0.69 (0.0-1.3) x10^3/uL Absolute Nucleated RBC 0.00 (0.00-0.01) x10^3u/L Lymphocytes % 45.0 H (24.0-44.0) % Monocytes % 8.1 (0.0-12.0) % Eosinophils % 2.4 (0.00-5.0) % Basophils % 0.8 (0.0-0.4) % Absolute Granulocytes 3.69 (1.4-6.9) x10^3/uL Basophils # 0.07 (0-0.4) x10^3/uL Sodium (135-145) mmol/L Potassium (3.5-5.1) mmol/L Chloride (98-107) mmol/L Carbon Dioxide (22-30) mmol/L Anion Gap (5-15) MEQ/L BUN (7-17) mg/dL Creatinine (0.52-1.04) mg/dL Estimated GFR ML/MIN Glucose (74-106) mg/dL Lactic Acid (0.4-2.0) Calcium (8.4-10.2) mg/dL Total Bilirubin (0.2-1.3) mg/dL AST (14-36) U/L ALT (0-35) U/L Alkaline Phosphatase (38-126) U/L Troponin I (0.000-0.033) ng/mL Serum Total Protein (6.3-8.2) g/dL Albumin (3.5-5.0) g/dL Urine Color (Yellow) Urine Appearance (Clear) Urine pH (4.6-8.0) Ur Specific [place] (1.005-1.030) Urine Protein (Negative) Urine Glucose (UA) (Negative) mg/dL Urine Ketones (Negative) Urine Blood (Negative) Urine Nitrite (Negative) Urine Bilirubin (Negative) Urine Urobilinogen (0.2) mg/dL Ur Leukocyte Esterase (Negative) U Hyaline Cast (Auto) (0-2) /LPF Urine Microscopic RBC (0-5) /HPF Urine Microscopic WBC (0-5) /HPF Ur Epithelial Cells (None Seen) /HPF Urine Bacteria (None Seen) /HPF Urine Yeast (Budding) (None Seen) /HPF Urine Culture Reflexed (NO) Urine Opiates Level (NEGATIVE) Ur Methadone (NEGATIVE) Urine Barbiturates (NEGATIVE) Ur Phencyclidine (PCP) (NEGATIVE) Urine Amphetamine (NEGATIVE) U Benzodiazepine Level (NEGATIVE) Urine Cocaine (NEGATIVE) Urine Marijuana (THC) (NEGATIVE) Ethyl Alcohol (0-10) mg/dL - Progress Progress: improved, re-examined Progress Note: 04/03/24 00:50 discussed with several hospitals at [facility] and [facility] and [facility] have accepted but we are awaiting beds. transport team is here. THere appears to be a CVA on CT possible acute but moving all extremities - radiology wants an MRI and we do not have here. THe hospitalist here was consulted but best to transfer to where an MRI can be done. [facility] now also accepted but awaiting a bed. Discussed with : Other ( at [facility]) Counseled pt/family regarding: lab results, diagnosis, need for follow-up, rad results Medical Desision Making - Independent Historian Additional History obtained from: Family - Discussion of managment Reviewed:: Test results, Need for additional workup Agreed on:: Treatment plan, need for follow-up, decision to admit - Diagnostic Testing Diagnostic test were ordered, analyzed, and reviewed by me: Yes Radiological Interpretation: Interpreted by me, Reviewed by me - Risk of complications The pt has a mod risk of morbidity or mortality based on: Need for prescription drug management The pt has a high risk of morbidity or mortality based on: Decision regarding hospitilization or escalation of hosp level of care - Departure Departure Disposition: Transfer 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
[2024-04-02 21:12] LABS: ALBUMIN 4.6 g/dL (3.5-5.0); ANION GAP 20.1 MEQ/L (5-15); BILIRUBIN,TOTAL 0.5 mg/dL (0.2-1.3); Creatinine 1 1.46 mg/dL (0.52-1.04); EST GLOMERULAR FILTRATION RATE 38.7 ML/MIN; Total Protein 8.3 g/dL (6.3-8.2)
[2024-04-02 21:26] VITALS: TEMP 97.1
[2024-04-02 21:28] LABS: Appearance Clear (Clear); Bacteria None Seen /HPF (None Seen); Bilirubin Negative (Negative); Blood Small (Negative); Epithelial Cells Rare /HPF (None Seen); Glucose, Urine >=1000 mg/dL (Negative); Hyaline Casts NONE SEEN /LPF (0-2); Ketones Negative (Negative); Leukocyte Esterase Small (Negative); Nitrite Negative (Negative); Protein,Urine Dip Negative (Negative); RBC 0-2 /HPF (0-5); Specific Gravity 1.025 (1.005-1.030); Urobilinogen 0.2 mg/dL (0.2); WBC 51-100 /HPF (0-5)
[2024-04-02 21:37] LABS: Amphetamine,Urine NEGATIVE (NEGATIVE); Barbiturate,Urine NEGATIVE (NEGATIVE); Benzodiazepine,Urine NEGATIVE (NEGATIVE); Cocaine,Urine NEGATIVE (NEGATIVE); Methadone,Urine NEGATIVE (NEGATIVE); Opiate,Urine NEGATIVE (NEGATIVE); PCP,Urine NEGATIVE (NEGATIVE); THC,Urine NEGATIVE (NEGATIVE)
[2024-04-02 21:41] LABS: ADD URINE CULTURE? YES (NO); Budding Yeast Moderate /HPF (None Seen)
[2024-04-02] MEDS ORDERED: POTASSIUM CHLORIDE 20 mEq IN WATER 100ML 100 ML IV ONE (22:44)
[2024-04-02] MEDS: POTASSIUM CHLORIDE 20 mEq IN WATER 100ML 20 MEQ/100 ML BAG IV ONE (22:46)
[2024-04-02] MEDS: Sodium Chloride 0.9% 1000 ML 1,000 ML IV SCH (22:46)
--- NOTE | 2024-04-02 22:56 | XRAY ---
CLINICAL HISTORY: AMS COMPARISON: None. TECHNIQUE: Axial non-contrast CT scan of the brain was performed from the skull base to the high parietal region with multiplanar reconstructions. One of the following dose reduction techniques was utilized for this exam: Automated exposure control, adjustment of the mA and/or kV according to patient size, and use of iterative reconstruction. FINDINGS: A hypodense area measuring 2.5 x 1.6 cm (in saggittal sections) is noted in left periventricular white matter at the level of arreola radiata and is extending superiorly to involve the centrum semiovale. Bilateral periventricular and subcortical hypodensities are suggestive of microvascular ischemic changes. The ventricular system, cortical sulci and basal cisterns are prominent consistent with senile changes. No intracerebral or extra axial hematoma. Martinez-white matter differentiation is maintained. No mass effect or midline shift. No space occupying lesion noted. Normal CT appearance of the posterior fossa structures namely the cerebellar hemispheres, brainstem and cerebellar peduncles. The IACs are unremarkable. The cerebello-pontine angles are clear. The pituitary gland, the pineal gland, and the optic chiasm are unremarkable. The osseous structures in the skull base are unremarkable. No definite calvarium fractures. The scanned paranasal sinuses are clear. IMPRESSION: 1. A hypodense area measuring 2.5 x 1.6 cm (in saggittal sections) is noted in left periventricular white matter at the level of arreola radiata and is extending superiorly to involve the centrum semiovale. It is concerning for acute infarction.MRI with DWI or CTA might prove further helpful. 2. 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 [facility] ER was called at [phone] at 10:51 PM EST, 04/02/2024 an results were verbally communicated to Kerri. Electronically Signed by: Romulo Collins MD. (04/02/2024 22:53:22 EDT)
[2024-04-02] MEDS ORDERED: ROCEPHIN 1 GM / 100 ML NaCl 1 GM/100 ML IVPB IV ONE (23:31)
[2024-04-02] MEDS: ROCEPHIN 1 GM / 100 ML NaCl 1 GM/100 ML IVPB IV ONE (23:33)
[2024-04-03] MEDS ORDERED: Ativan 2 MG/1 ML VIAL ONE (00:10)
[2024-04-03] MEDS: Ativan 2 MG/1 ML VIAL IV PRN (00:15)
[2024-04-03 00:45] VITALS: O2SAT 93
[2024-04-03 01:04] VITALS: PULSE 78; RESP 18
[2024-04-03 01:47] VITALS: BP 89/51
--- NOTE | 2024-04-03 08:05 | XRAY ---
Indication: Unresponsive. Intoxicated. Comparison: November 16, 2008 Portable chest is mildly underinflated without focal infiltrate, consolidation, or large effusion. Heart not enlarged. New large hiatal hernia with partial intrathoracic stomach. Bony thorax intact with osteopenia and mild degenerative changes. Impression: Nonacute underinflated chest with chronic features.
== END 2024-04-03 01:52 | disposition short-term general hospital (02) ==
LOC: ED 20:46
DX: F10.129 Alcohol abuse with intoxication, unspecified (principal); Y90.8 Blood alcohol level of 240 mg/100 ml or more; G93.89 Other specified disorders of brain; R93.0 Abnormal findings on diagnostic imaging of skull and head, not elsewhere classified; R41.82 Altered mental status, unspecified; I10 Essential (primary) hypertension; E11.9 Type 2 diabetes mellitus without complications; Z79.02 Long term (current) use of antithrombotics/antiplatelets; Z79.84 Long term (current) use of oral hypoglycemic drugs; Z79.85 Long-term (current) use of injectable non-insulin antidiabetic drugs; Z79.899 Other long term (current) drug therapy
CPT/HCPCS: 36000; 36415; 51702; 70450; 71045; 80053; 80307; 81001; 82077; 83605; 84484; 85025; 87086; 93005; 96365; 96367; 96374; 96375; 96376; 99285; 99291; J0696; J2060; J2405; J3480